=== PATIENT | female | born 1945 | race African-American/Black ===

== ENCOUNTER 2018-03-19 07:06 | Emergency (ER) | payer MEDICARE, OTHER ==
--- OUTSIDE RECORDS SUMMARY | 2018-03-19 07:08 | XMS REPORT | Clinical Summary ---
:1945 Author Organization [facility] Address [address] [place] [address] Care Team Providers Name Role Phone Alcides Cintron MD Primary Care Provider Allergies No Known Allergies Current Medications No known medications Active Problems Not on file Encounters Date Type Specialty Care Team Description 08/07/2017 Office Visit Orthopedic Surgery Baron Malhotra, Chronic pain of both knees (Primary Dx); Lymphedema 08/07/2017 Orders Only Orthopedic Surgery Mary Diaz MA after 03/18/2017 Social History Tobacco Use Types Packs/Day Years Used Date Never Smoker Smokeless Tobacco: Never Used Sex Assigned at Date Recorded Not on file Last Filed Vital Signs Vital Sign Reading Time Taken Blood Pressure - - Pulse - - Temperature - - Respiratory Rate - - Oxygen Saturation - - Inhaled Oxygen Concentration - - Weight 120 kg (265 lb) 08/07/2017 4:27 PM CDT Height 172.7 cm (5' 8") 08/07/2017 4:27 PM CDT Body Mass Index 40.29 08/07/2017 4:27 PM CDT Plan of Treatment Health Maintenance Due Date Last Done Comments BREAST CANCER SCREENING 1996 COLON CANCER SCREENING 1996 SHINGRIX VACCINE (#1) 1996 ZOSTER VACCINE 2006 PNEUMOCOCCAL POLYSACCHARIDE VACCINE AGE 65 AND OVER 2011 PNEUMOCOCCAL-13 2011 INFLUENZA VACCINE 12/12/2017 Procedures Procedure Name Priority Date/Time Associated Diagnosis Comments XR KNEE 4+ VW Routine 08/07/2017 4:33 PM Chronic pain of both Results for this BILATERAL CDT knees procedure are in the results section. after 03/18/2017 Results XR Knee 4+ Vw Bilateral (08/07/2017 4:33 PM) Narrative Performed At 2 views (AP and lateralof the bilateral knee(s) show that the prosthesis [facility] is in good position with no signs of any problems.No signs of loosening, infection, or dislocation. Performing Organization Address City/State/Zipcode Phone Number EUGENIO DAVIS [address] [place] [address] after 03/18/2017 Insurance Payer Benefit Plan / Group Subscriber ID Type Phone Address MEDICARE MEDICARE PART A AND B xxxxxxxxxx Medicare [place], [place] AARP AARP SUPPLEMENT xxxxxxxxxxx Commercial
--- NOTE | 2018-03-19 08:37 | ER ---
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 Transition of care: patient was not received from another setting of care. Onset of symptoms was March 19, 2018. Risk Assessment: Do you want to hurt yourself or someone else? Patient reports no desire to harm self or others. Initial Sepsis Screen: Does the patient meet any 2 criteria? No. Patient's initial sepsis screen is negative. Does the patient have a suspected source of infection? No. Patient's initial sepsis screen is negative. Care prior to arrival: None. 07:12 Method Of Arrival: Ambulatory 07:12 Acuity: [place] 4 hj Triage Assessment: 07:15 General: Appears in no apparent distress. uncomfortable, Behavior is calm, cooperative, hj appropriate for age. Historical: - Allergies: 07:14 No Known Allergies; hj - Home Meds: 07:14 hydrochlorothiazide 12.5 mg Oral cap 1 cap once daily [Active]; atorvastatin 40 mg Oral hj tab 1 tab once daily [Active]; amlodipine 5 mg oral tab 1 tab once daily [Active]; clonidine HCl 0.1 mg Oral tab 1 tab once daily [Active]; levothyroxine 137 mcg tab 1 tab once daily [Active]; Vitamin D Oral 28376 unit twice a month [Active]; lisinopril 40 mg Oral tab 1 tab once daily [Active]; - PMHx: 07:14 Hyperlipidemia; Hypertension; Hypothyroidism; hj - PSHx: 07:14 Knee surgery; Cholecystectomy; Hernia repair; Hysterectomy; hj - Immunization history:: Adult Immunizations up to date. - Social history:: Smoking status: Patient/guardian denies using tobacco, Patient/guardian denies using alcohol. - Ebola Screening: : Patient negative for fever greater than or equal to 101.5 degrees Fahrenheit, and additional compatible Ebola Virus Disease symptoms Patient denies exposure to infectious person Patient denies travel to an Ebola-affected area in the 21 days before illness onset. Screenin:15 Abuse screen: Denies threats or abuse. Denies injuries from another. Nutritional hj screening: No deficits noted. Tuberculosis screening: No symptoms or risk factors identified. Fall Risk None identified. Assessment: 07:15 Pain: Complains of pain in throat. Respiratory: Airway is patent Respiratory effort is hj even, unlabored, Respiratory pattern is regular, symmetrical, Breath sounds are clear. EENT: Throat. Vital Signs: 07:16 BP 139 / 73; Pulse 62; Resp 18; Temp 98.4(TE); Pulse Ox 98% on R/A; Weight 123.83 kg; hj Height 5 ft. 11 in. (180.34 cm); Pain 5/10; 08:45 BP 132 / 70; Pulse 66; Resp 17; Temp 98.4; Pulse Ox 98% on R/A; Pain 3/10; sg 07:16 Body Mass Index 38.08 (123.83 kg, 180.34 cm) ED Course: 07:11 Patient arrived in ED. mr 07:11 Varun Cintron MD is Private Physician. mr 07:13 Triage completed. hj 07:15 Arm band placed on right wrist. hj 07:16 Patient has correct armband on for positive identification. Bed in low position. Call light in reach. Side rails up X 1. 07:17 Beka Antonio, RN is Primary Nurse. sg 07:17 [facility] Ar[facility]C [facility]. kb 07:17 Zacarias Bateman MD is Attending Physician. kb 07:29 Flu and/or RSV swab sent to lab. Strep swab sent to lab. 5 07:29 Flu Sent. 5 07:29 Strep Sent. 5 09:00 No provider procedures requiring assistance completed. Patient did not have IV access sg during this emergency room visit. Administered Medications: No medications were administered Outcome: 08:36 Discharge ordered by . kb 09:00 Discharged to home ambulatory, with family. sg 09:00 Condition: good 09:00 Discharge instructions given to patient, Instructed on discharge instructions, safety practices, Demonstrated understanding of instructions, follow-up care. 09:03 Patient left the ED. iw Signatures: Donna Arrington FNP-C FNP-Beka Junior RN RN sg Nasim Hayley mr Ibis Galan RN RN iw Joaquin, Henry, RN RN hj Martinez, Maria [facility] Corrections: (The following items were deleted from the chart) 07:18 07:16 Pulse 62bpm; Resp 18bpm; Pulse Ox 98% RA; Temp 98.4F Temporal; 123.83 kg; Height hj 5 ft. 11 in.; BMI: 38.0; Pain 5/10; hj
--- NOTE | 2018-03-19 08:37 | EDPHYS ---
Physician Documentation [facility] Name: Conchita Padilla Age: 72 yrs Sex: Female : 1945 Arrival Date: 03/19/2018 Time: 07:11 Bed 13 Private MD: Varun Cintron B ED Physician Zacarias Bateman HPI: 03/19 07:24 This 72 yrs old Black Female presents to ER via Ambulatory with complaints of Sore kb Throat. 07:24 The patient presents with sore throat. The patient describes throat pain as constant. kb Onset: The symptoms/episode began/occurred yesterday. Severity of symptoms: At their worst the symptoms were moderate, in the emergency department the symptoms are unchanged. Modifying factors: The symptoms are alleviated by nothing, the symptoms are aggravated by swallowing, Patient's oral intake status: good Denies contact with similarly ill indivduals. Associated signs and symptoms: Pertinent positives: headache, Sore throat. The patient has not experienced similar symptoms in the past. The patient has not recently seen a physician. Pt c/o sore throat that started yesterday and has gotten worse throughout the night. Headache just started as well. Denies fever, chills. . Historical: - Allergies: 07:14 No Known Allergies; hj - Home Meds: 07:14 hydrochlorothiazide 12.5 mg Oral cap 1 cap once daily [Active]; atorvastatin 40 mg Oral hj tab 1 tab once daily [Active]; amlodipine 5 mg oral tab 1 tab once daily [Active]; clonidine HCl 0.1 mg Oral tab 1 tab once daily [Active]; levothyroxine 137 mcg tab 1 tab once daily [Active]; Vitamin D Oral 84278 unit twice a month [Active]; lisinopril 40 mg Oral tab 1 tab once daily [Active]; - PMHx: 07:14 Hyperlipidemia; Hypertension; Hypothyroidism; hj - PSHx: 07:14 Knee surgery; Cholecystectomy; Hernia repair; Hysterectomy; hj - Immunization history:: Adult Immunizations up to date. - Social history:: Smoking status: Patient/guardian denies using tobacco, Patient/guardian denies using alcohol. - Ebola Screening: : Patient negative for fever greater than or equal to 101.5 degrees Fahrenheit, and additional compatible Ebola Virus Disease symptoms Patient denies exposure to infectious person Patient denies travel to an Ebola-affected area in the 21 days before illness onset. ROS: 07:26 Constitutional: Negative for fever, chills, and weight loss, Neck: Negative for injury, kb pain, and swelling, Cardiovascular: Negative for chest pain, palpitations, and edema, Respiratory: Negative for shortness of breath, cough, wheezing, and pleuritic chest pain, Abdomen/GI: Negative for abdominal pain, nausea, vomiting, diarrhea, and constipation, MS/Extremity: Negative for injury and deformity, Skin: Negative for injury, rash, and discoloration. 07:26 ENT: Positive for sore throat. 07:26 Neuro: Positive for headache. Exam: 07:26 Constitutional: This is a well developed, well nourished patient who is awake, alert, kb and in no acute distress. Head/Face: Normocephalic, atraumatic. Neck: Trachea midline, no thyromegaly or masses palpated, and no cervical lymphadenopathy. Supple, full range of motion without nuchal rigidity, or vertebral point tenderness. No Meningismus. Chest/axilla: Normal chest wall appearance and motion. Nontender with no deformity. No lesions are appreciated. Cardiovascular: Regular rate and rhythm with a normal S1 and S2. No gallops, murmurs, or rubs. Normal PMI, no JVD. No pulse deficits. Respiratory: Lungs have equal breath sounds bilaterally, clear to auscultation and percussion. No rales, rhonchi or wheezes noted. No increased work of breathing, no retractions or nasal flaring. Abdomen/GI: Soft, non-tender, with normal bowel sounds. No distension or tympany. No guarding or rebound. No evidence of tenderness throughout. Skin: Warm, dry with normal turgor. Normal color with no rashes, no lesions, and no evidence of cellulitis. MS/ Extremity: Pulses equal, no cyanosis. Neurovascular intact. Full, normal range of motion. Neuro: Awake and alert, GCS 15, oriented to person, place, time, and situation. Cranial nerves II-XII grossly intact. Motor strength 5/5 in all extremities. Sensory grossly intact. Cerebellar exam normal. Normal gait. 07:26 ENT: Posterior pharynx: Airway: normal, no evidence of obstruction, Tonsils: with erythema, Uvula: normal, midline, swelling, that is mild, erythema, that is moderate, exudate, is not appreciated. Vital Signs: 07:16 BP 139 / 73; Pulse 62; Resp 18; Temp 98.4(TE); Pulse Ox 98% on R/A; Weight 123.83 kg; hj Height 5 ft. 11 in. (180.34 cm); Pain 5/10; 08:45 BP 132 / 70; Pulse 66; Resp 17; Temp 98.4; Pulse Ox 98% on R/A; Pain 3/10; sg 07:16 Body Mass Index 38.08 (123.83 kg, 180.34 cm) hj MDM: 07:18 Patient medically screened. kb 07:26 Data reviewed: vital signs, nurses notes. Data interpreted: Pulse oximetry: on room air kb is 98 %. Interpretation: normal. Counseling: I had a detailed discussion with the patient and/or guardian regarding: the historical points, exam findings, and any diagnostic results supporting the discharge/admit diagnosis, lab results, the need for outpatient follow up, a family practitioner, to return to the emergency department if symptoms worsen or persist or if there are any questions or concerns that arise at home. 03/19 07:22 Order name: Strep; Complete Time: 08:24 kb 03/19 07:22 Order name: Flu; Complete Time: 08:24 kb 03/19 08:21 Order name: Throat Culture EDMS Administered Medications: No medications were administered Disposition: 10:04 Co-signature as Attending Physician, Zacarias Bateman MD. rn Disposition: 03/19/18 08:36 Discharged to Home. Impression: Acute pharyngitis. - Condition is Stable. - Discharge Instructions: Pharyngitis, [id number]. - Medication Reconciliation Form, Thank You Letter, Antibiotic Education, Prescription Opioid Use, Work release form form. - Follow up: Emergency Department; When: As needed; Reason: Worsening of condition. Follow up: Private Physician; When: 2 - 3 days; Reason: Recheck today's complaints, Continuance of care, Re-evaluation by your physician. Signatures: Dispatcher [employer] EDMS Donna Arrington FNP-C FNP-Ibis Rondon RN RN iw Nieto, Roman, MD MD rn Joaquin, Henry, RN RN hj Corrections: (The following items were deleted from the chart) 09:03 08:36 03/19/2018 08:36 Discharged to Home. Impression: Acute pharyngitis. Condition is iw Stable. Discharge Instructions: Pharyngitis, [id number]. Forms are Medication Reconciliation Form, Thank You Letter, Antibiotic Education, Prescription Opioid Use. Follow up: Emergency Department; When: As needed; Reason: Worsening of condition. Follow up: Private Physician; When: 2 - 3 days; Reason: Recheck today's complaints, Continuance of care, Re-evaluation by your physician. kb
== END 2018-03-19 09:03 | disposition home or self-care (01) ==
LOC: ER 07:06
DX: J02.9 Acute pharyngitis, unspecified (principal); E78.5 Hyperlipidemia, unspecified; I10 Essential (primary) hypertension; E03.9 Hypothyroidism, unspecified
CPT/HCPCS: 87070; 87081; 87804; 99283

== ENCOUNTER 2019-06-16 07:22 | Emergency (ER) | payer OTHER, MEDICARE ==
[2019-06-16] MEDS ORDERED: NA CHLORIDE 0.9% 500 ML ONE (07:50)
[2019-06-16 08:18] LABS: Absolute Lymphocytes (CBC) 2.4 K/uL (0.7-4.9); Basophils % 0.5 % (0-1.3); Hematocrit 41.6 % (36.0-45.0); Lymphocytes % 42.3 % (15.3-44.8); MPV 8.2 fL (7.6-11.3); RBC Red Blood Cell Count 4.31 M/uL (3.86-4.86)
--- NOTE | 2019-06-16 08:23 | RAD REPORT ---
EXAM DESCRIPTION: CT - Stone Protocol - 06/16/2019 8:08 am CLINICAL HISTORY: FLANK PAIN, right-sided COMPARISON: CTANGIO CHEST FOR PE dated 12/16/2012 TECHNIQUE: Axial 5 mm thick images were obtained without oral or IV contrast. The knzjp-[id number] span s the entirety of the system including uppermost abdomen and lung bases. All CT scans are performed using dose optimization technique as appropriate and may include automated exposure control or mA/KV adjustment according to patient size. FINDINGS: No hydronephrosis is present and no obstructing ureteral calculi. No suspicious renal mass es. A 25 millimeter area of homogeneous fat attenuation is present along the lateral margin of the le ft kidney. This is possibly parenchymal loss from prior injury. Angiomyolipoma is also a primary cons ideration. Finding is not regarded as significant. Isodense masses and pyelonephritis are not exclude d on a stone protocol CT scan. Urinary bladder is fully contracted limiting assessment. No bladder ca lculi suspected. Uterus is absent. Ovaries are absent or atrophic. No adnexal mass. No significant ad renal finding. The liver and spleen show no suspicious findings. Atrophy and fatty infiltration of the pancreatic pa renchyma noted. No primary pancreatic mass identifiable. Several accessory splenic nodules are presen t along the medial inferior boundary. In the posterosuperior right lobe segment VIII there is a 13 mi llimeter low-density mass. This is most likely a cyst. No measurable change from 2012. Cholecystectom y clips are present. No biliary tree dilatation. No suspicious bowel findings. Left-sided diverticulosis is present without diverticulitis. No finding s for appendicitis. No hernia, mass or bulky lymphadenopathy noted. No free air, free fluid or inflammatory stranding. No significant bony abnormality. L4-5 degenerative disc disease present. Prominent facet joint degene rative change present at L3-4 and L4-5. IMPRESSION: No hydronephrosis, obstructing calculus or other acute finding. Isodense masses and pyelonephritis are not excluded on stone protocol technique. As detailed above, no acute or suspicious findings identified.
[2019-06-16 08:26] LABS: Urine Blood TRACE (NEG); Urine Glucose NEGATIVE (NEG); Urine Protein NEGATIVE (NEG); Urine Specific Gravity 1.015 (1.005-1.030)
[2019-06-16 08:30] LABS: Urine Bacteria 20-50 /HPF (<20); Urine Culture Reflex Order NOT NEEDED; Urine RBC <5 /HPF (NONE SEEN)
[2019-06-16] MEDS ORDERED: CEFTRIAXONE/SWI 1gm 1 GM/10 ML SYR ONE (08:31)
[2019-06-16 08:33] LABS: Albumin 3.9 g/dL (3.4-5.0); Bilirubin Direct 0.1 mg/dL (0-0.2); Bilirubin Total 0.5 mg/dL (0.2-1.0); Potassium 3.9 mmol/L (3.5-5.1); Protein, Total 7.8 g/dL (6.4-8.2)
--- NOTE | 2019-06-16 10:09 | EDPHYS ---
Physician Documentation [facility] Name: Conchita Padilla Age: 74 yrs Sex: Female : 1945 Arrival Date: 06/16/2019 Time: 07:25 Bed 19 Private MD: ED Physician Silver Marx HPI: 06/16 07:48 This 74 yrs old Black Female presents to ER via Ambulatory with complaints of Flank cp Pain. 07:49 The patient complains of pain in the right subscapular area and right mid back. The cp pain does not radiate. Onset: The symptoms/episode began/occurred 2 week(s) ago. 07:49 Associated signs and symptoms: Pertinent negatives: diarrhea, dysuria, fever, cp hematuria, pain radiating to the lower extremities, vomiting. Historical: - Allergies: 07:35 No Known Allergies; ss - PMHx: 07:35 Hyperlipidemia; Hypertension; Hypothyroidism; ss - PSHx: 07:35 Knee surgery; Cholecystectomy; Hernia repair; Hysterectomy; ss - Immunization history:: Adult Immunizations up to date. - Coronavirus screen:: The patient has NOT traveled to [place], [place], or [place] in the past 14 days. Proceed with normal triage process as indicated. - Social history:: Smoking status: Patient denies any tobacco usage or history of. - Ebola Screening: : Patient denies exposure to infectious person Patient denies travel to an Ebola-affected area in the 21 days before illness onset. ROS: 08:00 Constitutional: Negative for body aches, chills, fever, poor PO intake. cp 08:00 Eyes: Negative for injury, pain, redness, and discharge. cp 08:00 ENT: Negative for drainage from ear(s), ear pain, sore throat, difficulty swallowing, difficulty handling secretions. 08:00 Cardiovascular: Negative for chest pain, edema, palpitations. 08:00 Respiratory: Negative for cough, shortness of breath, wheezing. 08:00 Abdomen/GI: Negative for abdominal pain, vomiting, diarrhea, constipation, black/tarry stool, rectal bleeding. 08:00 Back: Positive for pain at rest, pain with movement, of the right subscapular area and right mid back. 08:00 : Negative for urinary symptoms. 08:00 Skin: Negative for rash. 08:00 Neuro: Negative for headache, weakness. 08:00 All other systems are negative. Exam: 08:05 Constitutional: The patient appears in no acute distress, alert, awake, non-toxic, well cp developed, well nourished. 08:05 Head/Face: Normocephalic, atraumatic. cp 08:05 Eyes: Periorbital structures: appear normal, Conjunctiva: normal, no exudate, no injection, Sclera: no appreciated abnormality, Lids and lashes: appear normal, bilaterally. 08:05 ENT: External ear(s): are unremarkable, Nose: is normal, Mouth: is normal, Posterior pharynx: Airway: no evidence of obstruction, patent. 08:05 Neck: ROM/movement: is normal, is supple, without pain, no range of motions limitations. 08:05 Chest/axilla: Inspection: normal. 08:05 Cardiovascular: Rate: normal, Rhythm: regular, Edema: is not appreciated, JVD: is not appreciated. 08:05 Respiratory: the patient does not display signs of respiratory distress, Respirations: normal, no use of accessory muscles, no splinting, no tachypnea, labored breathing, is not present, Breath sounds: are clear throughout, no decreased breath sounds, no stridor, no wheezing. 08:05 Abdomen/GI: Inspection: abdomen appears normal, Bowel sounds: active, all quadrants, Palpation: abdomen is soft and non-tender, in all quadrants. 08:05 Back: pain, that is mild, of the right subscapular area and right mid back, ROM is normal. 08:05 Skin: no rash present. Vital Signs: 07:32 BP 159 / 78; Pulse 67; Resp 16; Temp 97.8(TE); Pulse Ox 99% on R/A; Weight 114.31 kg; ss Height 5 ft. 8 in. (172.72 cm); Pain 5/10; 08:33 BP 135 / 71; Pulse 55; Resp 17; Pulse Ox 100% ; bp 09:41 BP 140 / 64; Pulse 57; Resp 16; Pulse Ox 98% ; bp 07:32 Body Mass Index 38.32 (114.31 kg, 172.72 cm) ss MDM: 07:39 Patient medically screened. cp 08:00 Differential diagnosis: nephrolithiasis, pyelonephritis, UTI, muscle strain. cp 10:08 Data reviewed: vital signs, nurses notes, lab test result(s), radiologic studies, CT cp scan. 10:08 Counseling: I had a detailed discussion with the patient and/or guardian regarding: the cp historical points, exam findings, and any diagnostic results supporting the discharge/admit diagnosis, lab results, radiology results, to return to the emergency department if symptoms worsen or persist or if there are any questions or concerns that arise at home. Response to treatment: the patient's symptoms have mildly improved after treatment, and as a result, I will discharge patient. 06/16 07:42 Order name: Urine Dipstick--Ancillary (enter results) bd 06/16 07:42 Order name: Urine Microscopic Only bp 06/16 07:43 Order name: Basic Metabolic Panel cp 06/16 07:43 Order name: CBC with Diff cp 06/16 07:43 Order name: Creatinine for Radiology cp 06/16 07:43 Order name: Hepatic Function cp 06/16 07:43 Order name: Lipase cp 06/16 07:43 Order name: Urine Microscopic Only cp 06/16 07:43 Order name: Urine Culture cp 06/16 08:19 Order name: CBC with Automated Diff; Complete Time: 08:20 EDMS 06/16 08:26 Order name: Urine Dipstick-Ancillary; Complete Time: 09:44 EDMS 06/16 09:44 Interpretation: Normal except: UBLD TRACE; U NIT POSITIVE; UESTR 1+. cp 06/16 08:29 Order name: Creatinine (Radiology Only); Complete Time: 09:44 EDMS 06/16 08:31 Order name: Urine Microscopic Only; Complete Time: 09:44 EDMS 06/16 09:44 Interpretation: Normal except: UWBC 5-10; UBACT 20-50; SQEPI 5-10. cp 06/16 08:33 Order name: Basic Metabolic Panel; Complete Time: 09:44 EDMS 06/16 07:42 Order name: Urine Dipstick-Ancillary (obtain specimen); Complete Time: 07:42 bp 06/16 07:43 Order name: IV Saline Lock; Complete Time: 08:06 cp 06/16 07:43 Order name: Labs collected and sent; Complete Time: 08:06 cp 06/16 07:43 Order name: CT Stone Protocol cp 06/16 08:23 Order name: CT; Complete Time: 09:44 EDMS 06/16 08:33 Order name: Liver (Hepatic) Function; Complete Time: 09:44 [facility] 06/16 08:33 Order name: Lipase; Complete Time: 44 [facility] Administered Medications: 08:00 Drug: NS 0.9% 500 ml Route: IV; Rate: 500 ml/hr; Site: left hand; bp 10:23 Follow up: IV Status: Completed infusion; IV Intake: 500ml bp 08:30 Drug: Rocephin 1 grams Route: IV; Rate: calculated rate; Site: left hand; bp 10:22 Follow up: IV Status: Completed infusion; IV Intake: 50ml bp Disposition: 10:32 Co-signature as Attending Physician, Silver Marx MD I agree with the assessment and kdr plan of care. Disposition: 06/16/19 10:08 Discharged to Home. Impression: Urinary tract infection, site not specified, Right mid back pain. - Condition is Stable. - Discharge Instructions: Pyelonephritis, Adult, Urinary Tract Infection, Adult. - Prescriptions for Augmentin 875- 125 mg Oral Tablet - take 1 tablet by ORAL route every 12 hours for 10 days; 20 tablet. Ibuprofen 800 mg Oral Tablet - take 1 tablet by ORAL route every 8 hours As needed take with food; 30 tablet. Tramadol 50 mg Oral Tablet - take 1 tablet by ORAL route every 8 hours as needed; 12 tablet. - Medication Reconciliation Form, Thank You Letter, Antibiotic Education, Prescription Opioid Use, Work release form form. - Follow up: Private Physician; When: 2 - 3 days; Reason: Recheck today's complaints. - Problem is new. - Symptoms have improved. Signatures: Dispatcher [employer] [facility] Silver Marx MD MD [facility] Hannah Holt RN RN ss Jone Betancourt PA PA cp Hardik Frederick, RN RN bp Corrections: (The following items were deleted from the chart) 10:23 10:08 06/16/2019 10:08 Discharged to Home. Impression: Urinary tract infection, site bp not specified; Right mid back pain. Condition is Stable. Forms are Medication Reconciliation Form, Thank You Letter, Antibiotic Education, Prescription Opioid Use. Follow up: Private Physician; When: 2 - 3 days; Reason: Recheck today's complaints. Problem is new. Symptoms have improved. cp
--- NOTE | 2019-06-16 10:09 | ER ---
Nurse's Notes [facility] Name: Conchita Padilla Age: 74 yrs Sex: Female : 1945 Arrival Date: 06/16/2019 Time: 07:25 Bed 19 Private MD: Diagnosis: Urinary tract infection, site not specified;Right mid back pain Presentation: 06/16 07:33 Presenting complaint: Patient states: R flank pain that began 2 weeks ago. No injury. ss Transition of care: patient was not received from another setting of care. Onset of symptoms was May 2019. Risk Assessment: Do you want to hurt yourself or someone else? Patient reports no desire to harm self or others. Initial Sepsis Screen: Does the patient meet any 2 criteria? No. Patient's initial sepsis screen is negative. Does the patient have a suspected source of infection? No. Patient's initial sepsis screen is negative. Care prior to arrival: Medication(s) given: Tramadol x 1. 07:33 Method Of Arrival: Ambulatory ss 07:33 Acuity: [place] 3 ss Triage Assessment: 07:32 General: Appears in no apparent distress. comfortable, obese, Behavior is calm, bp cooperative, appropriate for age. Pain: Complains of pain in right flank. EENT: No deficits noted. Neuro: No deficits noted. Cardiovascular: No deficits noted. Respiratory: No deficits noted. GI: No signs and/or symptoms were reported involving the gastrointestinal system. : Reports urinary frequency. Derm: No deficits noted. Musculoskeletal: No deficits noted. Historical: - Allergies: 07:35 No Known Allergies; ss - PMHx: 07:35 Hyperlipidemia; Hypertension; Hypothyroidism; ss - PSHx: 07:35 Knee surgery; Cholecystectomy; Hernia repair; Hysterectomy; ss - Immunization history:: Adult Immunizations up to date. - Coronavirus screen:: The patient has NOT traveled to [place], [place], or [place] in the past 14 days. Proceed with normal triage process as indicated. - Social history:: Smoking status: Patient denies any tobacco usage or history of. - Ebola Screening: : Patient denies exposure to infectious person Patient denies travel to an Ebola-affected area in the 21 days before illness onset. Screenin:33 Abuse screen: Denies threats or abuse. Denies injuries from another. Nutritional bp screening: No deficits noted. Tuberculosis screening: No symptoms or risk factors identified. Fall Risk None identified. Assessment: 07:34 General: SEE TRIAGE NOTE. bp 08:05 Reassessment: PT TO CT WITH BOILER WELDER. bp 08:17 Reassessment: PT RETURNED FROM CT. ALL CURRENT ORDERS COMPLETED, RESULTS PENDING FOR bp DISPO. 09:42 Reassessment: PT RESTING QUIETLY, VS STABLE ON MONITOR. RESULTS PENDING FOR DISPO. bp 10:21 Reassessment: PT D/C HOME AMBULATORY, DX WITH UTI AND BACK PAIN. bp Vital Signs: 07:32 BP 159 / 78; Pulse 67; Resp 16; Temp 97.8(TE); Pulse Ox 99% on R/A; Weight 114.31 kg; ss Height 5 ft. 8 in. (172.72 cm); Pain 5/10; 08:33 BP 135 / 71; Pulse 55; Resp 17; Pulse Ox 100% ; bp 09:41 BP 140 / 64; Pulse 57; Resp 16; Pulse Ox 98% ; bp 07:32 Body Mass Index 38.32 (114.31 kg, 172.72 cm) ED Course: 07:25 Patient arrived in ED. es 07:27 Hardik Frederick, RN is Primary Nurse. bp 07:32 Arm band placed on right wrist. ss 07:33 Patient has correct armband on for positive identification. Bed in low position. Call bp light in reach. Side rails up X2. 07:34 Triage completed. ss 07:35 Jone Betancourt PA is PHCP. cp 07:35 iSlver Marx MD is Attending Physician. cp 08:00 Inserted saline lock: 24 gauge in left hand, using aseptic technique. Blood collected. bp 08:43 Basic Metabolic Panel Sent. bp 08:44 CBC with Diff Sent. bp 08:44 Creatinine for Radiology Sent. bp 08:44 Hepatic Function Sent. bp 08:44 Lipase Sent. bp 08:44 Urine Dipstick--Ancillary (enter results) Sent. bp 08:44 Urine Microscopic Only Sent. bp 08:44 Urine Microscopic Only Sent. bp 08:44 Urine Culture Sent. bp 10:22 No provider procedures requiring assistance completed. IV discontinued, intact, bp bleeding controlled, No redness/swelling at site. Pressure dressing applied. Administered Medications: 08:00 Drug: NS 0.9% 500 ml Route: IV; Rate: 500 ml/hr; Site: left hand; bp 10:23 Follow up: IV Status: Completed infusion; IV Intake: 500ml bp 08:30 Drug: Rocephin 1 grams Route: IV; Rate: calculated rate; Site: left hand; bp 10:22 Follow up: IV Status: Completed infusion; IV Intake: 50ml bp Intake: 10:22 IV: 50ml; Total: 50ml. bp 10:23 IV: 500ml; Total: 550ml. bp Outcome: 10:08 Discharge ordered by MD. cp 10:22 Discharged to home ambulatory. bp 10:22 Condition: stable 10:22 Discharge instructions given to patient, Instructed on discharge instructions, follow up and referral plans. medication usage, Demonstrated understanding of instructions, follow-up care, medications, Prescriptions given X 3. 10:23 Patient left the ED. bp Addendum: 06/19/2019 09:52 Addendum: Culture Results: Positive urine culture. No further action required. Bacteria i w sensitive to prescribed antibiotic. Signatures: She Ryan Irene, RN RN Hannah Holt RN RN Jone Rivera PA PA Hardik Mccormack, RN RN bp
[2019-06-16 10:33] VITALS: TEMP 97.8
[2019-06-16 10:36] VITALS: BP 140/64; O2SAT 98
== END 2019-06-16 10:23 | disposition home or self-care (01) ==
LOC: ER 07:22
DX: N39.0 Urinary tract infection, site not specified (principal); M54.9 Dorsalgia, unspecified; I10 Essential (primary) hypertension
CPT/HCPCS: 96365; 96361; 87088; 85025; 87086; 80048; 36415; 80076; 87077; 87186; 83690; 76377; 74176; 99284; 96366; J0696; J7040; 81003; 81015

== ENCOUNTER 2020-09-23 16:05 | Emergency (ER) | payer OTHER, MEDICARE ==
--- OUTSIDE RECORDS SUMMARY | 2020-09-23 16:08 | XMS REPORT | Continuity of Care Document ---
:1945 Author Organization [facility] Address [address] [place] [address] Care Team Providers Name Role Phone Malvin Cintron MD Primary Care Physician Simi Castrejon Attending Clinician [phone] Garry PICKETT, AAlbino Attending Clinician Payers Payer Name Policy Type Policy Effective Date Expiration Date Sour ce Number MEDICAREMEDICARE PART [id number] 2011 Ankush Lucero AND 00:00:00 [facility] [id number] 2011[place] [place] [id number] 2017 [place] [id number] 00:00:00 Met bush 2017-PresentComme rcial Problems This patient has no known problems. Allergies, Adverse Reactions, Alerts This patient has no known allergies or adverse reactions. Family History Family Member Diagnosis Comments Start Date Stop Date Source Natural brother Cancer [facility] Social History Social Habit Start Date Stop Date Quantity Comments Source Tobacco use and 2020-04-26 2020-04-26 Never used [facility] exposure 00:00:00 00:00:00 Alcohol intake 2020-04-26 2020-04-26 [facility] 00:00:00 00:00:00 non-drinker (finding) Sex Ass[birth year] [facility] 00:00:00 00:00:00 Smoking Status Start Date Stop Date Source Never smoker [facility] Ev t Medications Ordered Filled Start Stop Current Ordering Indication Dosage Frequency Signature Comments Components Source Medication Medication Date Date Medication? Clinician (SIG) Name Name gabapentin 2019-05- No Chronic 100mg [id number] Take 1 Romero (Neurontin) 06-27 midline low [id number] capsule [facility] 100 mg 00:00: 23:59 back pain 3D ([address] capsule 00 :00 without total) by sciatica mouth 3 (three) times a day. gabapentin 2019-05- No Chronic 100mg [id number] Take 1 Romero (Neurontin) 06-27 midline low [id number] capsule Methodi 100 mg 00:00: 00:00 back pain 3D ([address] capsule 00 :00 without total) by sciatica mouth 3 (three) times a day. clonIDINE 2019-05 Yes .1mg QD Take 0.1 [place] (CATAPRES) 0-23 mg by [facility] 0.1 MG 00:00: mouth st tablet 00 nightly. hydroCHLORO 2019-05 Yes TK 1 T PO [place] thiazide 0-23 QAM PRN [facility] (HYDRODIURI 00:00: st L) 12.5 MG 00 tablet cholecalcif 2019-05 Yes TK 1 C PO [place] nan, 0-22 Q 15 DAYS [facility] vitamin D3, 00:00: st 1,250 mcg 00 (50,000 unit) capsule amLODIPine 0 Yes 5mg QD Take 5 mg [place] (NORVASC) 5 02-03 by mouth Meth [place] mg tablet 00:00: daily. st 00 atorvastati 2020-0 Yes 40mg QD Take 40 mg Jasso n (LIPITOR) 02-03 by mouth [place] 40 mg 00:00: daily. st tablet 00 traMADoL 2020-0 Yes 50mg Take 50 mg [place] (ULTRAM) 50 02-02 by mouth. Met hodi mg tablet 00:00: st 00 omeprazole 2020-0 Yes TK ONE C [place] (PriLOSEC) 9-15 PO D 30 Metho di 40 MG 00:00: MINUTES st capsule 00 BEFORE MORNING MEAL Vital Signs Vital Name Observation Time Observation Value Comments Source Systolic blood 2020-04-26 09:37:00 143 mm[Hg] Angela murray Ten[facility] pressure Diastolic blood 2020-04-26 09:37:00 71 mm[Hg] Danial ozuna [facility]ism pressure Heart rate 2020-04-26 09:37:00 61 /min Romero Abreu Respiratory rate 2020-04-26 09:37:00 20 /min Ana ton [facility]ism Body weight 2020-04-26 09:37:00 115.667 kg Romero Abreu BMI 2020-04-26 09:37:00 38.77 kg/m2 Romero Abreu Procedures This patient has no known procedures. Plan of Care Planned Activity Planned Date Details Comments Source Future Scheduled 2020-12-12 INFLUENZA VACCINE Anato n Tenriism Test 00:00:00 [code = INFLUENZA VACCINE] Future Scheduled 2011 65+ PNEUMOCOCCAL Jasso [facility] Test 00:00:00 VACCINE (1 of 1 - PPSV23) [code = 65+ PNEUMOCOCCAL VACCINE (1 of 1 - PPSV23)] Future Scheduled 1996 BREAST CANCER [facility] Test 00:00:00 SCREENING [code = BREAST CANCER SCREENING] Future Scheduled 1996 COLONOSCOPY SCREENING [place] [facility] Test 00:00:00 [code = COLONOSCOPY SCREENING] Future Scheduled 1996 SHINGLES VACCINES (#1) [place] [facility] Test 00:00:00 [code = SHINGLES VACCINES (#1)] Future Scheduled 1964 Hepatitis C screening [place] [facility] Test 00:00:00 (procedure) [code = 477449646] Future Scheduled 1958 COVID-19 VACCINE (1) [place] st[place] [facility] Test 00:00:00 [code = COVID-19 VACCINE (1)] Encounters Start End Encounter Admission Attending Care Care Encounter Source Date/Time Date/Time Type Type Clinicians Facility Department ID 2020-09-20 2020-09-20 Outpatient MAX Castrejon [id number] 00:00:00 00:00:00 Xiomara [id number] Simi [id number] 2020-04-26 2020-04-26 Outpatient [facility] [id number] [place] 00:00:00 00:00:00 , ARACELI [address] 2020-03-26 2020-03-26 Outpatient [facility] [id number] [place] 00:00:00 00:00:00 , ARACELI [address] Results This patient has no known results.
--- NOTE | 2020-09-23 19:26 | EDPHYS ---
Physician Documentation [facility] Name: Conchita Padilla Age: 75 yrs Sex: Female : 1945 Arrival Date: 09/23/2020 Time: 16:08 Bed 13 Private MD: Varun Cintron B ED Physician Jone Waller HPI: 09/23 17:40 This 75 yrs old Black Female presents to ER via EMS with complaints of Leg Pain. jr8 17:40 Onset: The symptoms/episode began/occurred acutely, today. Modifying factors: The jr8 symptoms are alleviated by nothing. the symptoms are aggravated by weight bearing. Associated signs and symptoms: The patient has no apparent associated signs or symptoms. Severity of symptoms: At their worst the symptoms were mild, in the emergency department the symptoms are unchanged. The patient has not experienced similar symptoms in the past. The patient has not recently seen a physician. Patient stated that she woke up with right knee pain and left ankle pain. Has not wanted to bear weight secondary to pain. Denies trauma to either extremity . Historical: - Allergies: 16:28 No Known Allergies; jl7 - Home Meds: 16:28 amlodipine 5 mg tab 1 tab once daily [Active]; hydrochlorothiazide 12.5 mg Oral cap 1 jl7 cap once daily [Active]; clonidine HCl 0.1 mg Oral tab 1 tab once daily [Active]; levothyroxine 137 mcg tab 1 tab once daily [Active]; olmesartan oral oral [Active]; atorvastatin 40 mg Oral tab 1 tab once daily [Active]; - PMHx: 16:28 Hyperlipidemia; Hypertension; Hypothyroidism; jl7 - PSHx: 16:28 Cholecystectomy; Hernia repair; Hysterectomy; Knee surgery; jl7 - Immunization history:: Adult Immunizations up to date, Client reports receiving the 2nd dose of the Covid vaccine, Date received: August 04, 2020. - Social history:: Smoking status: Patient denies any tobacco usage or history of. ROS: 19:00 Eyes: Negative for injury, pain, redness, and discharge, ENT: Negative for injury, jr8 pain, and discharge, Neck: Negative for injury, pain, and swelling, Cardiovascular: Negative for chest pain, palpitations, and edema, Respiratory: Negative for shortness of breath, cough, wheezing, and pleuritic chest pain, Abdomen/GI: Negative for abdominal pain, nausea, vomiting, diarrhea, and constipation, Back: Negative for injury and pain, Skin: Negative for injury, rash, and discoloration, Neuro: Negative for headache, weakness, numbness, tingling, and seizure. 19:00 MS/extremity: Positive for pain, tenderness, of the right knee and left ankle. Exam: 19:00 Constitutional: This is a well developed, well nourished patient who is awake, alert, jr8 and in no acute distress. Cardiovascular: Regular rate and rhythm with a normal S1 and S2. No gallops, murmurs, or rubs. Normal PMI, no JVD. No pulse deficits. Respiratory: Lungs have equal breath sounds bilaterally, clear to auscultation and percussion. No rales, rhonchi or wheezes noted. No increased work of breathing, no retractions or nasal flaring. Back: No spinal tenderness. No costovertebral tenderness. Full range of motion without pain. Skin: Warm, dry with normal turgor. Normal color with no rashes, no lesions, and no evidence of cellulitis. Neuro: Awake and alert, GCS 15, oriented to person, place, time, and situation. Cranial nerves II-XII grossly intact. Motor strength 5/5 in all extremities. Sensory grossly intact. 19:00 Musculoskeletal/extremity: Extremities: grossly normal except: noted in the right knee: pain, tenderness, to anterior knee. No significant swelling noted , noted in the left ankle : pain, tenderness, to anterior ankle. No swelling or erythema noted , ROM: intact in all extremities, Circulation is intact in all extremities. Sensation intact. Vital Signs: 16:23 BP 130 / 47; Pulse 63; Resp 15 S; Temp 98.1(TE); Pulse Ox 97% on R/A; Weight 122.02 kg; jl7 Height 5 ft. 8 in. (172.72 cm); Pain 8/10; 17:34 BP 115 / 48; Pulse 75; Resp 18; Pulse Ox 97% on R/A; vg1 18:39 BP 119 / 64; Pulse 76; Resp 16; Pulse Ox 100% on R/A; vg1 20:00 BP 129 / 63; Pulse 70; Resp 16; Pulse Ox 100% on R/A; vg1 16:23 Body Mass Index 40.90 (122.02 kg, 172.72 cm) jl7 MDM: 17:15 Patient medically screened. jr8 19:13 Data reviewed: vital signs, nurses notes, radiologic studies, plain films. Data jr8 interpreted: Pulse oximetry: on room air is 100 %. Interpretation: normal. Counseling: I had a detailed discussion with the patient and/or guardian regarding: the historical points, exam findings, and any diagnostic results supporting the discharge/admit diagnosis, radiology results, the need for outpatient follow up, a family practitioner, a orthopedic surgeon, to return to the emergency department if symptoms worsen or persist or if there are any questions or concerns that arise at home. 19:23 ED course: No focal neurologic deficits noted on exam. Discussed with patient that we jr8 will try some medications to help with inflammation. If she feels worse to come back for further evaluation. Patient good with plan. 09/23 17:28 Order name: XRAY Knee RIGHT 3 view; Complete Time: 09:48 jr8 09/23 17:28 Order name: XRAY Ankle LEFT 3 view; Complete Time: 09:48 jr8 Administered Medications: 20:07 Drug: [place] (HYDROcodone-acetaminophen) (7.5 mg-325 mg) 1 tabs Route: PO; vg1 20:11 Follow up: Response: Medication administered at discharge. vg1 Disposition: 09/23/20 19:25 Discharged to Home. Impression: Pain in right knee, Pain in left ankle and joints of left foot. - Condition is Stable. - Discharge Instructions: Joint Pain, Arthritis, Knee Pain. - Prescriptions for meloxicam 7.5 mg Oral tablet - take 1 tablet by ORAL route once daily As needed; 14 tablet. Medrol (Kevin) 4 mg Oral Tablets, Dose Pack - take 1 tablet by ORAL route as directed - follow package instructions; 1 packet. - Medication Reconciliation Form, Thank You Letter, Antibiotic Education, Prescription Opioid Use form. - Follow up: Varun Cintron MD; When: 1 week; Reason: Recheck today's complaints, Continuance of care, Re-evaluation by your physician. - Problem is new. - Symptoms have improved. Addendum: 09/25/2020 07:46 Co-signature as Attending Physician, Jone Waller MD I agree with the assessment and c cuellar plan of care. Signatures: Dispatcher [employer] Jone Baker MD MD cha Roszak, Josh, PA PA jr8 Joseph Villareal, RN RN jl7 Yoko Calvillo, RN RN vg1 Corrections: (The following items were deleted from the chart) 09/23 19:05 17:40 . jr8 jr8 19:23 19:00 Constitutional: This is a well developed, well nourished patient who is awake, jr8 alert, and in no acute distress. Cardiovascular: Regular rate and rhythm with a normal S1 and S2. No gallops, murmurs, or rubs. Normal PMI, no JVD. No pulse deficits. Respiratory: Lungs have equal breath sounds bilaterally, clear to auscultation and percussion. No rales, rhonchi or wheezes noted. No increased work of breathing, no retractions or nasal flaring. Back: No spinal tenderness. No costovertebral tenderness. Full range of motion. Skin: Warm, dry with normal turgor. Normal color with no rashes, no lesions, and no evidence of cellulitis. Neuro: Awake and alert, GCS 15, oriented to person, place, time, and situation. Cranial nerves II-XII grossly intact. Motor strength 5/5 in all extremities. Sensory grossly intact. jr8 20:12 19:25 09/23/2020 19:25 Discharged to Home. Impression: Pain in right knee; Pain in left vg1 ankle and joints of left foot. Condition is Stable. Forms are Medication Reconciliation Form, Thank You Letter, Antibiotic Education, Prescription Opioid Use. Follow up: Varun Cintron; When: 1 week; Reason: Recheck today's complaints, Continuance of care, Re-evaluation by your physician. Problem is new. Symptoms have improved. jr8
--- NOTE | 2020-09-23 19:26 | ER ---
[facility] Name: Conchita Pad[facility] Age: 75 yrs Sex: Female : 1945 Arrival Date: 09/23/2020 Time: 16:08 Bed 13 Private MD: Varun Cintron B Diagnosis: Pain in right knee;Pain in left ankle and joints of left foot Presentation: 09/23 16:23 Chief complaint: Patient states: Right knee pain and left ankle pain started last jl7 night, unable to bear weight. Coronavirus screen: Client denies travel out of the [place] in the last 14 days. At this time, the client does not indicate any symptoms associated with coronavirus-19. Ebola Screen: No symptoms or risks identified at this time. Initial Sepsis Screen: Does the patient meet any 2 criteria? No. Patient's initial sepsis screen is negative. Does the patient have a suspected source of infection? No. Patient's initial sepsis screen is negative. Risk Assessment: Do you want to hurt yourself or someone else? Patient reports no desire to harm self or others. Onset of symptoms was September 22, 2020. 16:23 Method Of Arrival: EMS: [facility] jl7 16:23 Acuity: [place] 3 jl7 Triage Assessment: 16:28 General: Appears in no apparent distress. uncomfortable, Behavior is calm, cooperative, jl7 appropriate for age. Pain: Complains of pain in right knee and left ankle. Historical: - Allergies: 16:28 No Known Allergies; jl7 - Home Meds: 16:28 amlodipine 5 mg tab 1 tab once daily [Active]; hydrochlorothiazide 12.5 mg Oral cap 1 jl7 cap once daily [Active]; clonidine HCl 0.1 mg Oral tab 1 tab once daily [Active]; levothyroxine 137 mcg tab 1 tab once daily [Active]; olmesartan oral oral [Active]; atorvastatin 40 mg Oral tab 1 tab once daily [Active]; - PMHx: 16:28 Hyperlipidemia; Hypertension; Hypothyroidism; jl7 - PSHx: 16:28 Cholecystectomy; Hernia repair; Hysterectomy; Knee surgery; jl7 - Immunization history:: Adult Immunizations up to date, Client reports receiving the 2nd dose of the Covid vaccine, Date received: August 04, 2020. - Social history:: Smoking status: Patient denies any tobacco usage or history of. Screenin:34 Abuse screen: Denies threats or abuse. Nutritional screening: No deficits noted. vg1 Tuberculosis screening: No symptoms or risk factors identified. Fall Risk No fall in past 12 months (0 pts). No secondary diagnosis (0 pts). No IV (0 pts). Ambulatory Aid- None/Bed Rest/Nurse Assist (0 pts). Gait- Impaired (20 pts.). Mental Status- Oriented to own ability (0 pts). Total Arnold Fall Scale indicates Low Risk Score (25-44 pts). Fall prevention measures have been instituted. Side Rails Up X 2 Placed close to Nursing Station. Assessment: 17:32 General: Appears in no apparent distress. uncomfortable, Behavior is calm, cooperative. vg1 Pain: Complains of pain in Right knee and left ankle Pain currently is 2 out of 10 on a pain scale. at worst was 10 out of 10 on a pain scale. Pain began last night Alleviated by rest, Aggravated by repositioning, weight bearing. Neuro: Level of Consciousness is awake, alert, obeys commands, Oriented to person, place, time, situation. Cardiovascular: Patient's skin is warm and dry. Respiratory: Airway is patent Respiratory effort is even, unlabored. GI: No signs and/or symptoms were reported involving the gastrointestinal system. : No signs and/or symptoms were reported regarding the genitourinary system. EENT: No signs and/or symptoms were reported regarding the EENT system. Derm: Skin is intact, Skin is pink, warm \T\ dry. Musculoskeletal: Swelling present in left ankle. 18:39 Reassessment: Patient appears in no apparent distress at this time. No changes from vg1 previously documented assessment. Patient and/or family updated on plan of care and expected duration. Pain level reassessed. Patient is alert, oriented x 3, equal unlabored respirations, skin warm/dry/pink. 19:58 Reassessment: Received VO from Kyle MONSIVAIS to administer 7.5/325 mg of Winfred PO x1. vg1 20:12 Reassessment: Patient appears in no apparent distress at this time. No changes from vg1 previously documented assessment. Patient and/or family updated on plan of care and expected duration. Pain level reassessed. Patient is alert, oriented x 3, equal unlabored respirations, skin warm/dry/pink. Vital Signs: 16:23 BP 130 / 47; Pulse 63; Resp 15 S; Temp 98.1(TE); Pulse Ox 97% on R/A; Weight 122.02 kg; jl7 Height 5 ft. 8 in. (172.72 cm); Pain 8/10; 17:34 BP 115 / 48; Pulse 75; Resp 18; Pulse Ox 97% on R/A; vg1 18:39 BP 119 / 64; Pulse 76; Resp 16; Pulse Ox 100% on R/A; vg1 20:00 BP 129 / 63; Pulse 70; Resp 16; Pulse Ox 100% on R/A; vg1 16:23 Body Mass Index 40.90 (122.02 kg, 172.72 cm) jl7 ED Course: 16:08 Patient arrived in ED. mr 16:09 Varun Cintron MD is Private Physician. mr 16:26 Triage completed. jl7 16:28 Arm band placed on right wrist. Patient placed in waiting room, in a wheelchair, jl7 Patient notified of wait time. 17:14 Avery Wright PA is PHCP. jr8 17:15 Jone Waller MD is Attending Physician. jr8 17:27 Yoko Calvillo, RN is Primary Nurse. vg1 17:35 Patient has correct armband on for positive identification. Call light in reach. Pt vg1 stated would rather sit in the ED wheelchair than get up and sit into the bed. 19:24 Varun Cintron MD is Referral Physician. jr8 19:37 XRAY Knee RIGHT 3 view In Process Unspecified. EDMS 19:37 XRAY Ankle LEFT 3 view In Process Unspecified. EDMS 20:12 No provider procedures requiring assistance completed. Patient did not have IV access vg1 during this emergency room visit. Administered Medications: 20:07 Drug: [place] (HYDROcodone-acetaminophen) (7.5 mg-325 mg) 1 tabs Route: PO; vg1 20:11 Follow up: Response: Medication administered at discharge. vg1 Outcome: 19:25 Discharge ordered by . jr8 20:12 Discharged to home via ambulance, with family. vg1 20:12 Condition: stable 20:12 Discharge instructions given to patient, Instructed on discharge instructions, follow up and referral plans. medication usage, Demonstrated understanding of instructions, follow-up care, medications, Prescriptions given X 2. 20:12 Patient left the ED. vg1 Signatures: Dispatcher [employer] SHAWN RamiresaHayley Josh, PA PA jr8 Leal, Jahala, RN RN jl7 Yoko Calvillo RN RN vg1
--- NOTE | 2020-09-23 19:52 | RAD REPORT ---
EXAM DESCRIPTION: RAD - Ankle Left 3 View - 09/23/2020 7:37 pm CLINICAL HISTORY: PAIN COMPARISON: No comparisons FINDINGS: Moderate soft tissue swelling is seen about the ankle. Small plantar calcaneal spur. No ac princess fracture or dislocation is seen.
--- NOTE | 2020-09-23 19:54 | RAD REPORT ---
EXAM DESCRIPTION: RAD - Knee Right 3 View - 09/23/2020 7:37 pm CLINICAL HISTORY: PAIN COMPARISON: No comparisons FINDINGS: Right total knee arthroplasty is noted. No hardware loosening or infection seen. No acute fracture. No joint effusion.
[2020-09-23] MEDS ORDERED: HYDROCODONE/APAP 7.5/325 MG TAB ONE (20:20)
[2020-09-23 21:40] VITALS: TEMP 98.1
[2020-09-23 21:43] VITALS: O2SAT 100
[2020-09-23 21:44] VITALS: BP 129/63
== END 2020-09-23 20:12 | disposition home or self-care (01) ==
LOC: ER 16:05
DX: M25.572 Pain in left ankle and joints of left foot (principal); I10 Essential (primary) hypertension; E78.5 Hyperlipidemia, unspecified; E03.9 Hypothyroidism, unspecified
CPT/HCPCS: 99284

== ENCOUNTER 2021-01-05 06:30 | Day surgery (SDC) | payer OTHER, MEDICARE ==
[2021-01-05] MEDS ORDERED: Ringers Lactate 1,000 ML IV ONE (07:18)
[2021-01-05 07:21] VITALS: O2SAT 100
[2021-01-05] MEDS ORDERED: LIDOCAINE 1% MPF 5 ML VIAL ONE (08:12)
[2021-01-05] MEDS ORDERED: propofoL 200 MG/20 ML VIAL IV ONE ×3 (08:12→08:46)
[2021-01-05] MEDS ORDERED: NS 0.9% VIAL 0 ML ONE (08:13)
[2021-01-05] MEDS ORDERED: EPHEDRINE SULF 50 MG/ML VIAL ONE (08:13)
[2021-01-05] MEDS ORDERED: Phenylephrine HCl 10 MG/ML 1 ML VIAL ONE (08:13)
--- NOTE | 2021-01-05 08:52 | ENDO RPT ---
[address], [address] EGD WITH DILATION PROCEDURE REPORT EXAM DATE: 01/05/2021 PATIENT NAME: Conchita Padilla MR#: [id number] BIRTHDATE: 1945 ATTENDING: Roby Mcallister Dr STATUS: outpatient PERSONNEL ADVISER: Meredith Sosa RN and Irma Cruz INDICATIONS: The patient is a 75 yr old Female here for an EGD with dilation due to mid epigastric abdominal pain, GERD, dysphagia, odynophagia, and stricture PROCEDURE PERFORMED: EGD with biopsy and EGD with dilatation over guidewire MEDICATIONS: Per Anesthesia. TOPICAL ANESTHETIC: none CONSENT: The patient understands the risks and benefits of the procedure and understands that these risks include, but are not limited to: sedation, allergic reaction, infection, perforation and/or bleeding. Alternative means of evaluation and treatment include, among others: physical exam, x-rays, and/or surgical intervention. The patient elects to proceed with this endoscopic procedure. DESCRIPTION OF PROCEDURE: During intra-op preparation period all mechanical medical equipment was checked for proper function. Hand hygiene and appropriate measures for infection prevention was taken. After the risks, benefits and alternatives of the procedure were thoroughly explained, Informed consent was verified, confirmed and timeout was successfully executed by the treatment team. The patient was anesthetized with topical anesthesia and the EG-[id number] ([id number]) endoscope was introduced through the mouth and advanced to the third portion of the duodenum. The instrument was slowly withdrawn as the mucosa was fully examined. Moderate atrophic gastritis was found in the body and the antrum of the stomach. Dilation was performed at lower esophagus. DILATOR: SIZE(S): RESISTANCE: HEME: APPEARANCE: Dilator: Savary over guidewire Size(s): 14,15 mm Resistance: moderate Heme: yes Appearance: adequate COMMENT: Retroflexed views revealed no abnormalities. ADVERSE EVENTS: There were no complications. IMPRESSIONS: 1. Non-obstructive dysphagfia, s/p 14 / 15 mm Savary dilatations 2. Moderate atrophic gastritis in the body and the antrum of the stomach, s/p biopsies by endoscope RECOMMENDATIONS: 1. await biopsy results 2. acid suppression therapy REPEAT EXAM: Roby Mcallister Dr eSigned: Roby Mcallister Dr 01/05/2021 8:52 AM cc: Varun Cintron M.D. CPT CODES: ICD9 CODES: PATIENT NAME: RandyConchita MR#: [id number]
--- NOTE | 2021-01-05 09:02 | ENDO RPT ---
[address], [address] COLONOSCOPY PROCEDURE REPORT EXAM DATE: 01/05/2021 PATIENT NAME: Conchita Padilla MR #: [id number] BIRTHDATE: 1945 ATTENDING: Roby Mcallister Dr STATUS: outpatient ROLLER INSPECTOR: Meredith Sosa RN and Irma Cruz INDICATIONS: The patient is a 75 yr old Female here for a colonoscopy due to RLQ/LLQ abdominal pain and history of polyps PROCEDURE PERFORMED: Colonoscopy with biopsy - cold polypectomy MEDICATIONS: Per Anesthesia. ESTIMATED BLOOD LOSS: None CONSENT: The patient understands the risks and benefits of the procedure and understands that these risks include, but are not limited to: sedation, allergic reaction, infection, perforation and/or bleeding. Alternative means of evaluation and treatment include, among others: physical exam, x-rays, and/or surgical intervention. The patient elects to proceed with this endoscopic procedure. DESCRIPTION OF PROCEDURE: During intra-op preparation period all mechanical medical equipment was checked for proper function. Hand hygiene and appropriate measures for infection prevention was taken. Procedure, possible complications, alternatives including, but not limited to possibility of bleeding, perforation, tear, infection, sepsis, need for surgery, need for blood transfusion, were explained to the patient. After the risks, benefits and alternatives of the procedure were thoroughly explained, Informed consent was verified, confirmed and timeout was successfully executed by the treatment team. The patient was placed in the left lateral position. A digital rectal exam was performed and revealed several skin tags. After appropriate level of anesthesia, the scope was passed. The EG-[id number] ([id number]) and EC-[id number] ([id number]) endoscope was introduced through the anus and advanced to the cecum, which was identified by both the appendix and ileocecal valve. The quality of the prep was fair. The instrument was then slowly withdrawn as the colon was fully examined. Scope withdrawal time was 8 minutes. COLON FINDINGS: Two smooth sessile polyps measuring 4 mm in size were found in the descending colon. A polypectomy was performed with cold forceps. Mild diverticulosis was noted in the sigmoid colon. No bleeding was noted from the diverticulosis. Small internal hemorrhoids were found. Retroflexed views revealed small hemorrhoids. The scope was then completely withdrawn from the patient and the procedure terminated. ADVERSE EVENTS: There were no complications. IMPRESSIONS: 1. Two 4 mm sessile polyps in the descending colon; polypectomy was performed with cold forceps 2. Mild diverticulosis in the sigmoid colon 3. Small internal hemorrhoids 4. Intubation to cecum 5. Personal history of colon polyps RECOMMENDATIONS: 1. await biopsy results 2. avoid NSAIDS for 2 weeks RECALL: Return in 3 year(s) for Colonoscopy. Roby Mcallister Dr eSigned: Roby Mcallister Dr 01/05/2021 9:02 AM cc: Varun Cintron CPT CODES: ICD9 CODES: PATIENT NAME: Conchita Padilla MR#: [id number]
[2021-01-05 09:44] VITALS: BP 136/56; TEMP 97.4
== END 2021-01-05 09:37 | disposition home or self-care (01) ==
LOC: OR 06:30
PROVIDERS: ATTEND Internal Medicine Gastroenterology
PROC: 0DB58ZX Excision of Esophagus, Via Natural or Artificial Opening Endoscopic, Diagnostic (ICD-10-PCS; 2021-01-05)
PROC: 0DB68ZX Excision of Stomach, Via Natural or Artificial Opening Endoscopic, Diagnostic (ICD-10-PCS; 2021-01-05)
PROC: 0DBM8ZX Excision of Descending Colon, Via Natural or Artificial Opening Endoscopic, Diagnostic (ICD-10-PCS; principal; 2021-01-05 07:30)
PROC: 0D738ZZ Dilation of Lower Esophagus, Via Natural or Artificial Opening Endoscopic (ICD-10-PCS; 2021-01-05 07:30)
DX: D12.4 Benign neoplasm of descending colon (principal); R10.13 Epigastric pain; K21.9 Gastro-esophageal reflux disease without esophagitis; R10.32 Left lower quadrant pain; Z86.010 Personal history of colon polyps; I10 Essential (primary) hypertension; E05.90 Thyrotoxicosis, unspecified without thyrotoxic crisis or storm; K64.8 Other hemorrhoids; Z20.822 Contact with and (suspected) exposure to COVID-19
CPT/HCPCS: 88312; 88305; 45380; 43248; 43239; U0003; J2704 ×2; J7120; C1769; J2370

== ENCOUNTER 2022-02-28 00:42 | Emergency (ER) | payer OTHER, MEDICARE ==
--- OUTSIDE RECORDS SUMMARY | 2022-02-28 00:46 | XMS REPORT | Continuity of Care Document ---
:1945 Author Organization [facility] t Address [address] [place] [address] Dr. [address]. [address] [place] [address] Care Team Providers Name Role Phone PCP, PATIENT DOES NOT HAVE A Primary Care Physician Unavaila Anastacio Cunha Attending Clinician Unavailable JUSTICE VERA Attending Clinician Unavailable NEVIN PAUL Attending Clinician Unavailable Quinton Attending Clinician Unavailable Xiomara Castrejon Attending Clinician [phone] ARACELI CHASE Attending Clinician Unavailable Anastacio Page Admitting Clinician Unavailable Quinton Admitting Clinician Unavailable Payers Payer Name Policy Type Policy Number Effective Date Expiration Date S ourramses MEDICARE PART A \T\ [id number] 2011 B 00:00:00 [facility] [id number] 2021 MEDICARE SUPPLEMENT 00:00:00 MEDICARE B-[place]: [id number] 2011 [employer] 00:00:00 [facility] [id number] 2014 OPTIONS (MEDICARE 00:00:00 SUPPLEMENT) Problems Condition Condition Condition Status Onset Resolution Last Treating Co mments Source Name Details Category Date Date Treatment Clinician Date Constipati Constipati Problem Active P rivia on on 09-20 Medical 00:00: 00 Prolapse Prolapse Problem Active [facility] a of female of Female 5-10 Medi geraldine genital Genital 00:00: organs Organs 00 Urinary Urinary Problem Active [facility] incontinen Incontinen 5-10 Me dical ce ce 00:00: 00 Body mass Body Mass Problem Active Mariam via index 40+ Index 40+ 5-10 Medi geraldine - severely - Severely 00:00: obese Obese 00 No known No known Disease Metho di active active st problems problems Hospit a l Allergies, Adverse Reactions, Alerts Allergy Allergy Status Severity Reaction(s) Onset Inactive Treating Comm ents Source Name Type Date Date Clinician No Known DA Active U [facility] Allergie 2-22 Clear s 00:00: Crespo 00 [facility] No Known DA Active U 2015-05 [facility] Drug 0-06 Clear Allergie 00:00: Crespo s 00 [facility] NO KNOWN Drug Active Univers ALLERGIE Class ity of S [facility] Family History Family Member Diagnosis Comments Start Date Stop Date Source Natural brother Cancer [facility] Social History Social Habit Start Date Stop Date Quantity Comments Source Alcohol intake 2020-04-26 2020-04-26 [facility] 00:00:00 00:00:00 non-drinker Hospital (finding) Tobacco use and 2020-03-26 2020-03-26 Smokeless tobacco [facility] exposure 00:00:00 00:00:00 non-user Hospital Sex Ass[birth year] At [birth year] [facility] 00:00:00 00:00:00 Hospital Smoking Status Start Date Stop Date Source Never Smoker [facility] Medications Ordered Filled Start Stop Current Ordering Indication Dosage Frequency Signature Comments Components Source Medication Medication Date Date Medication? Clinician (SIG) Name Name gabapentin 2019-05- No [id number] 100mg [id number] Take 1 [facility] (Neurontin) 06-[id number] 100 mg 00:00: 05:59 3D (100 mg Hospita capsule 00 :00 total) by l mouth 3 (three) times a day. clonIDINE 2019-05 Yes .1mg QD Take 0.1 Meth [facility] (CATAPRES) 0-[address] 0.1 MG 00:00: mouth [facility]osp[facility] tablet 00 nightly. l hydroCHLORO 2019-05 Yes TK 1 T PO M ethodi thiazide 0-[address] (HYDRODIURI 00:00: Hospit a L) 12.5 MG 00 l tablet cholecalcif 2019-05 Yes TK 1 C PO M ethodi nan, 0-[address] vitamin D3, 00:00: Hospit a 1,250 mcg 00 l (50,000 unit) capsule amLODIPine 2019-0 Yes 5mg QD Take 5 mg Me thodi (NORVASC) 5 02-[address] mg tablet 00:00: daily. Hospit a 00 l atorvastati 2019-0 Yes 40mg QD Take 40 mg [facility] n (LIPITOR) 02-[address] 40 mg 00:00: daily. Hospita tablet 00 l traMADoL 2019-0 Yes 50mg Take 50 mg Met hodi (ULTRAM) 50 02-[address] mg tablet 00:00: Hospita 00 l omeprazole 2019-0 Yes TK ONE C Met hodi (PriLOSEC) 01-[address] 40 MG 00:00: MINUTES [facility]ospita capsule 00 BEFORE l MORNING MEAL amlodipine amlodipine No amlodipine [facility] 5 mg tablet 5 mg tablet 5 mg M edical TAKE 1 TAKE 1 tablet TABLET BY TABLET BY TAKE 1 MOUTH EVERY MOUTH EVERY TABLET BY DAY DAY MOUTH EVERY DAY atorvastati atorvastati No atorvastat [facility] n 40 mg n 40 mg in 40 mg Medic al tablet TAKE tablet TAKE tablet 1 TABLET BY 1 TABLET BY TAKE 1 MOUTH EVERY MOUTH EVERY TABLET BY DAY DAY MOUTH EVERY DAY clonidine clonidine No clonidine [facility] HCl 0.1 mg HCl 0.1 mg HCl 0.1 mg Medical tablet TAKE tablet TAKE tablet 1 TABLET BY 1 TABLET BY TAKE 1 MOUTH EVERY MOUTH EVERY TABLET BY NIGHT AT NIGHT AT MOUTH BEDTIME BEDTIME EVERY NIGHT AT BEDTIME estradiol estradiol No estradiol [facility] 0.01% (0.1 0.01% (0.1 0.01% (0.1 Medical mg/gram) mg/gram) mg/gram) vaginal vaginal vaginal cream 1 g cream 1 g cream 1 g per vagina per vagina per vagina nightly for nightly for nightly 2 weeks, 2 weeks, for 2 then 1 g then 1 g weeks, per vagina per vagina then 1 g twice twice per vagina weekly at weekly at twice bedtime bedtime weekly at bedtime hydrochloro hydrochloro No hydrochlor [facility] thiazide thiazide othiazide Me dical levothyroxi levothyroxi No levothyrox [facility] ne 125 mcg ne 125 mcg ine 125 Medical tablet TAKE tablet TAKE mcg tablet 1 TABLET BY 1 TABLET BY TAKE 1 MOUTH DAILY MOUTH DAILY TABLET BY IN THE IN THE MOUTH MORNING ON MORNING ON DAILY IN AN EMPTY AN EMPTY THE STOMACH STOMACH MORNING ON AN EMPTY STOMACH nitrofurant nitrofurant No nitrofuran [facility] oin oin toin Medical monohydrate monohydrate monohydrat /macrocryst /macrocryst e/macrocry als 100 mg als 100 mg stals 100 capsule capsule mg capsule Take 1 Take 1 Take 1 capsule(s) capsule(s) capsule(s) after each after each after each visit visit visit olmesartan olmesartan No olmesartan [facility] 40 mg 40 mg 40 mg Medical tablet TAKE tablet TAKE tablet 1 TABLET BY 1 TABLET BY TAKE 1 MOUTH DAILY MOUTH DAILY TABLET BY MOUTH DAILY [place] 3-6-9 [place] 3-6-9 No [place] [facility] 3-6-9 Medical turmeric turmeric No turmeric [facility] via Medical Vitamin C Vitamin C No Vitamin C [facility] 1,000 mg 1,000 mg 1,000 mg Med ical tablet Take tablet Take tablet by oral by oral Take by route. route. oral route. Vitamin D Vitamin D No Vitamin D [facility] zinc 50 mg zinc 50 mg No zinc 50 mg [facility] tablet Take tablet Take tablet Medical by oral by oral Take by route. route. oral route. Vital Signs Vital Name Observation Time Observation Value Comments Source BP Diastolic 2020-09-20 00:00:00 68 mm[Hg] [facility] Height 2020-09-20 00:00:00 68 [in_i] Perez gomez BMI (Body Mass Index) 2020-09-20 00:00:00 40.9 kg/m2 [facility] Medical BP Systolic 2020-09-20 00:00:00 138 mm[Hg] [facility] Body Weight 2020-09-20 00:00:00 269 [lb_av] Perez gomez Procedures Procedure Date / Time Performed Performing Clinician Sour e MAMMO, screening, bilateral 2020-09-20 00:00:00 [facility] Cholecyst[facility] 2012-05[facility]14 [facility] Laparoscopic [place] 2011-05-14 00:00:00 Perez Stanton edical Fundoplication Using Abdominal Approach Hysterectomy - Abdominal 1984-05-14 00:00:00 Mariam via Medical Exploratory Laparotomy 1962-05-14 00:00:00 [facility] Complete Repair of Rotator [facility] Cuff Orthopedic - Knee [facility] Replacement Plan of Care Planned Activity Planned Date Details Comments Source Future Scheduled 2022-01-12 HEPATITIS B VACCINES [facility] Test 03:16:42 (1 of 3 - 3-dose series) [code = HEPATITIS B VACCINES (1 of 3 - 3-dose series)] Future Scheduled 2022-01-12 COVID-19 VACCINE (#[facility]) [facility] Test 03:16:42 [code = COVID-19 VACCINE (#1)] Future Scheduled 2022-01-12 Hepatitis C screening [facility] Test 03:16:42 (procedure) [code = 776236716] Future Scheduled 2022-01-12 BREAST CANCER [facility] Test 03:16:42 SCREENING [code = BREAST CANCER SCREENING] Future Scheduled 2022-01-12 COLONOSCOPY SCREENING [facility] Test 03:16:42 [code = COLONOSCOPY SCREENING] Future Scheduled 2022-01-12 SHINGLES VACCINES (1 [facility] Test 03:16:42 of 2) [code = SHINGLES VACCINES (1 of 2)] Future Scheduled 2022-01-12 65+ [facility] 03:16:42 VACCINE (1 - PCV) [code = 65+ PNEUMOCOCCAL VACCINE (1 - PCV)] Future Scheduled 2022-01-12 INFLUENZA VACCINE [facility] Test 03:16:42 [code = INFLUENZA VACCINE] Diagnostic Test 2020-09-20 culture, urine [code [facility] Pending 00:00:00 = culture, urine] Diagnostic Test 2020-09-20 urinalysis, complete [facility] Pending 00:00:00 [code = urinalysis, complete] Encounters Start End Encounter Admission Attending Care Care Encounter Source Date/Time Date/Time Type Type Clinicians Facility Department ID 2021-07-05 2021-07-10 Inpatient EM GARETT Page MEDI.01 [id number] [facility] 15:25:00 10:27:00 Anastacio Guerrero [facility] 2021-07-05 2021-07-10 Inpatient EM GARETT Page MEDI. [id number] [facility] 15:25:00 10:27:00 Anastacio Guerrero [facility] 2021-06-03 2021-06-03 Outpatient SKYLAR ARANA RIHARVEY [id number] [facility] 16:00:00 16:00:[address] [facility] 2021-05-14 2021-05-14 Outpatient Snehal PAUL [facility] [id number] 18:00:00 18:25:[address] [facility] 2020-09-21 2020-09-21 Outpatient _[facility] PRIV PRIV [id number] [facility] 03:32:00 03:32:00 _[place] [id number] Medica l 2020-09-20 2020-09-20 Outpatient GC_[facility] PRIV PRIV [id number] [facility] 04:15:00 04:15:00 _[place] [id number] Medica l 2020-09-20 2020-09-20 Xiomara PRIV [place] - [facility] 00:00:00 00:00:00 Simi [facility] - Medic al Lucía, _[facility] MD: [id number], Office* [address], [place] [address] , Ph. [phone] 2020-09-20 2020-09-20 Outpatient Lucía, PRIV PRIV [id number] 00:00:00 00:00:00 Xiomara [id number] Simi [id number] 2020-04-26 2020-04-26 Outpatient [facility] [id number] [place] 00:00:00 00:00:00 , ARACELI [address] 2020-03-26 2020-03-26 Outpatient [facility] [id number] [place] 00:00:00 00:00:00 , ARACELI [address] 2015-08-23 2015-08-23 Outpatient [facility] PRIV PRIV [id number] [facility] 04:20:00 04:20:00 _[place] [id number] Medica l Results Test Description Test Time Test Comments Results Result Comments Source BASIC METABOLIC PANEL 2021-07-10 08:01:00 Test Item Value Reference Range Interpretation Comme nts SODIUM (test code = NA) 144 mEq/L 134-147 N POTASSIUM (test code = K) 3.6 mEq/L 3.4-5.0 N CHLORIDE (test code = CL) 112 mEq/L 100-108 H CARBON DIOXIDE (test code = CO2) 21 mEq/l 21-33 N ANION GAP (test code = GAP) 15 0-20 N GLUCOSE (test code = GLU) 94 mg/dL 70-110 N BLOOD UREA NITROGEN (test code = 15 mg/dL 7-18 N BUN) GLOMERULAR FILTRATION RATE (test 73.9 70-80 N Units of measure = ml/min/1.73 code = GFR) m2 CREATININE (test code = CREAT) 0.9 mg/dL 0.6-1.3 N CALCIUM (test code = CA) 8.1 mg/dL 8.0-10.5 N GLUCOSE [id number] 07:59:00 Test Item Value Reference Range Interpretation Comments GLUCOSE BEDSIDE (test 103 MG/DL 70-110 N [facility] med by certified code = GLUBED) 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 CBC W/AUTO [id number] 07:48:00 Test Item Value Reference Range Interpretation Comments WHITE BLOOD CELL (test code = 9.0 x10 3/uL 4.5-11.0 N WBC) RED BLOOD CELL (test code = 3.22 x10 6/uL 3.54-5.02 L RBC) HEMOGLOBIN (test code = HGB) 10.3 g/dL 11.0-15.0 L HEMATOCRIT (test code = HCT) 31.7 % 33.0-45.0 L MEAN CELL VOLUME (test code = 98.4 fL 81.0-99.0 N MCV) MEAN CELL HGB (test code = MCH) 32.0 pg 27.0-33.0 N MEAN CELL HGB CONCETRATION 32.5 g/dL 33.0-37.0 L (test code = MCHC) RED CELL DISTRIBUTION WIDTH CV 14.7 % 11.5-14.5 H (test code = RDW) RED CELL DISTRIBUTION WIDTH SD 53.6 fL 37.0-54.0 N (test code = RDW-SD) PLATELET COUNT (test code = 347 x10 3/uL 150-400 N PLT) MEAN PLATELET VOLUME (test code 9.6 fL 7.0-9.0 H = MPV) NEUTROPHIL % (test code = NT%) 61.9 % 56.0-77.0 N IMMATURE GRANULOCYTE % (test 0.9 % 0.0-2.0 N code = IG%) LYMPHOCYTE % (test code = LY%) 24.3 % 14.0-32.0 N MONOCYTE % (test code = MO%) 9.5 % 4.8-9.0 H EOSINOPHIL % (test code = EO%) 2.8 % 0.3-3.7 N BASOPHIL % (test code = BA%) 0.6 % 0.0-2.0 N NUCLEATED RBC % (test code = 0.0 % 0-0 N NRBC%) NEUTROPHIL # (test code = NT#) 5.55 x10 3/uL 2.0-7.6 N IMMATURE GRANULOCYTE # (test 0.08 x10 3/uL 0.00-0.03 H code = IG#) LYMPHOCYTE # (test code = LY#) 2.18 x10 3/uL 1.0-3.8 N MONOCYTE # (test code = MO#) 0.85 x10 3/uL 0.1-0.8 H EOSINOPHIL # (test code = EO#) 0.25 x10 3/uL 0.0-0.2 H BASOPHIL # (test code = BA#) 0.05 x10 3/uL 0.0-0.2 N NUCLEATED RBC # (test code = 0.00 x10 3/uL 0.0-0.1 N NRBC#) MANUAL DIFF REQUIRED (test code NO = MDIFF) GLUCOSE [id number] 19:21:00 Test Item Value Reference Range Interpretation Comments GLUCOSE BEDSIDE (test 117 MG/DL 70-110 H Perfor med by certified code = GLUBED) 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 [facility] GLUCOSE [id number] 17:15:00 Test Item Value Reference Range Interpretation Comments GLUCOSE BEDSIDE (test 134 MG/DL 70-110 H Perfor med by certified code = GLUBED) 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 [facility] GLUCOSE [id number] 12:18:00 Test Item Value Reference Range Interpretation Comments GLUCOSE BEDSIDE (test 117 MG/DL 70-110 H Perfor med by certified code = GLUBED) 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 [facility] GLUCOSE [id number] 08:15:00 Test Item Value Reference Range Interpretation Comments GLUCOSE BEDSIDE (test 89 MG/DL 70-110 N Perfor med by certified code = GLUBED) 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 [facility] BASIC METABOLIC [id number] 08:03:00 Test Item Value Reference Range Interpretation Comments SODIUM (test code = NA) 143 mEq/L 134-147 N POTASSIUM (test code = 3.8 mEq/L 3.4-5.0 N K) CHLORIDE (test code = 110 mEq/L 100-108 H CL) CARBON DIOXIDE (test 20 mEq/l 21-33 L code = CO2) ANION GAP (test code = 17 0-20 N GAP) GLUCOSE (test code = 98 mg/dL 70-110 N GLU) BLOOD UREA NITROGEN 13 mg/dL 7-18 (test code = BUN) GLOMERULAR FILTRATION 65.4 70-80 L Units of measure = RATE (test code = GFR) ml/mi n/1.73 m2 CREATININE (test code = 1.0 mg/dL 0.6-1.3 N CREAT) CALCIUM (test code = 8.3 mg/dL 8.0-10.5 N CA) CBC W/AUTO [id number] 07:48:00 Test Item Value Reference Range Interpretation Comments WHITE BLOOD CELL (test code = 12.4 x10 3/uL 4.5-11.0 H WBC) RED BLOOD CELL (test code = 3.60 x10 6/uL 3.54-5.02 N RBC) HEMOGLOBIN (test code = HGB) 11.8 g/dL 11.0-15.0 N HEMATOCRIT (test code = HCT) 35.7 % 33.0-45.0 N MEAN CELL VOLUME (test code = 99.2 fL 81.0-99.0 H MCV) MEAN CELL HGB (test code = MCH) 32.8 pg 27.0-33.0 N MEAN CELL HGB CONCETRATION 33.1 g/dL 33.0-37.0 N (test code = MCHC) RED CELL DISTRIBUTION WIDTH CV 14.6 % 11.5-14.5 H (test code = RDW) RED CELL DISTRIBUTION WIDTH SD 54.0 fL 37.0-54.0 N (test code = RDW-SD) PLATELET COUNT (test code = 370 x10 3/uL 150-400 N PLT) MEAN PLATELET VOLUME (test code 10.4 fL 7.0-9.0 H = MPV) NEUTROPHIL % (test code = NT%) 66.9 % 56.0-77.0 N IMMATURE GRANULOCYTE % (test 0.9 % 0.0-2.0 N code = IG%) LYMPHOCYTE % (test code = LY%) 20.4 % 14.0-32.0 N MONOCYTE % (test code = MO%) 9.7 % 4.8-9.0 H EOSINOPHIL % (test code = EO%) 1.9 % 0.3-3.7 N BASOPHIL % (test code = BA%) 0.2 % 0.0-2.0 N NUCLEATED RBC % (test code = 0.0 % 0-0 N NRBC%) NEUTROPHIL # (test code = NT#) 8.27 x10 3/uL 2.0-7.6 H IMMATURE GRANULOCYTE # (test 0.11 x10 3/uL 0.00-0.03 H code = IG#) LYMPHOCYTE # (test code = LY#) 2.53 x10 3/uL 1.0-3.8 N MONOCYTE # (test code = MO#) 1.20 x10 3/uL 0.1-0.8 H EOSINOPHIL # (test code = EO#) 0.24 x10 3/uL 0.0-0.2 H BASOPHIL # (test code = BA#) 0.03 x10 3/uL 0.0-0.2 N NUCLEATED RBC # (test code = 0.00 x10 3/uL 0.0-0.1 N NRBC#) MANUAL DIFF REQUIRED (test code NO = MDIFF) GLUCOSE [id number] 21:20:00 Test Item Value Reference Range Interpretation Comments GLUCOSE BEDSIDE (test 137 MG/DL 70-110 H Perfor med by certified code = GLUBED) 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 COMPREHENSIVE METABOLIC [id number] 05:05:00 Test Item Value Reference Range Interpretation Comments SODIUM (test code = NA) 140 mEq/L 134-147 N POTASSIUM (test code = 3.4 mEq/L 3.4-5.0 N K) CHLORIDE (test code = 107 mEq/L 100-108 N CL) CARBON DIOXIDE (test 22 mEq/l 21-33 N code = CO2) ANION GAP (test code = 14 0-20 N GAP) GLUCOSE (test code = 112 mg/dL 70-110 H GLU) BLOOD UREA NITROGEN 20 mg/dL 7-18 H (test code = BUN) GLOMERULAR FILTRATION 58.6 70-80 L Units of measure = RATE (test code = GFR) ml/mi n/1.73 m2 CREATININE (test code = 1.1 mg/dL 0.6-1.3 CREAT) TOTAL PROTEIN (test 5.6 g/dL 6.4-8.2 L code = PROT) ALBUMIN (test code = 2.80 g/dL 3.4-5.0 L ALB) CALCIUM (test code = 9.0 mg/dL 8.0-10.5 N CA) BILIRUBIN TOTAL (test 0.70 mg/dL 0.0-1.0 N code = BILT) SGOT/AST (test code = 36 IUnit/L 15-37 N AST) SGPT/ALT (test code = 71 IUnit/L 30-65 H ALT) ALKALINE PHOSPHATASE 169 IUnit/L 20-125 H TOTAL (test code = ALKP) CBC W/AUTO [id number] 04:50:00 Test Item Value Reference Range Interpretation Comments WHITE BLOOD CELL (test code = 13.6 x10 3/uL 4.5-11.0 H WBC) RED BLOOD CELL (test code = 3.27 x10 6/uL 3.54-5.02 L RBC) HEMOGLOBIN (test code = HGB) 10.7 g/dL 11.0-15.0 L HEMATOCRIT (test code = HCT) 31.8 % 33.0-45.0 L MEAN CELL VOLUME (test code = 97.2 fL 81.0-99.0 MCV) MEAN CELL HGB (test code = 32.7 pg 27.0-33.0 N MCH) MEAN CELL HGB CONCETRATION 33.6 g/dL 33.0-37.0 N (test code = MCHC) RED CELL DISTRIBUTION WIDTH CV 14.4 % 11.5-14.5 N (test code = RDW) RED CELL DISTRIBUTION WIDTH SD 52.0 fL 37.0-54.0 N (test code = RDW-SD) PLATELET COUNT (test code = 311 x10 3/uL 150-400 N PLT) MEAN PLATELET VOLUME (test 9.6 fL 7.0-9.0 H code = MPV) NEUTROPHIL % (test code = NT%) 74.3 % 56.0-77.0 N IMMATURE GRANULOCYTE % (test 1.0 % 0.0-2.0 N code = IG%) LYMPHOCYTE % (test code = LY%) 15.2 % 14.0-32.0 N MONOCYTE % (test code = MO%) 8.3 % 4.8-9.0 N EOSINOPHIL % (test code = EO%) 1.0 % 0.3-3.7 N BASOPHIL % (test code = BA%) 0.2 % 0.0-2.0 N NUCLEATED RBC % (test code = 0.0 % 0-0 N NRBC%) NEUTROPHIL # (test code = NT#) 10.10 x10 3/uL 2.0-7.6 H IMMATURE GRANULOCYTE # (test 0.13 x10 3/uL 0.00-0.03 H code = IG#) LYMPHOCYTE # (test code = LY#) 2.07 x10 3/uL 1.0-3.8 N MONOCYTE # (test code = MO#) 1.13 x10 3/uL 0.1-0.8 H EOSINOPHIL # (test code = EO#) 0.14 x10 3/uL 0.0-0.2 N BASOPHIL # (test code = BA#) 0.03 x10 3/uL 0.0-0.2 N NUCLEATED RBC # (test code = 0.00 x10 3/uL 0.0-0.1 N NRBC#) MANUAL DIFF REQUIRED (test NO code = MDIFF) GLUCOSE [id number] 20:09:00 Test Item Value Reference Range Interpretation Comments GLUCOSE BEDSIDE (test 147 MG/DL 70-110 H Perfor med by certified code = GLUBED) 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 ACUTE HEPATITIS [id number] 18:16:00 Test Item Value Reference Range Interpretation Comments AB HEPATITIS A IGM (test NON REACTIVE INDEX NON REACT. code = HAVMAB) AG HEPATITIS B SURFACE NON REACTIVE INDEX NonReactive (test code = HBSAG) AB HEPATITIS B CORE IGM NON REACTIVE INDEX NON REACT. (test code = HBCMAB) AB HEPATITIS C (test code NON REACTIVE INDEX NON REACT. = HCVAB) COMPREHENSIVE METABOLIC [id number] 17:30:00 Test Item Value Reference Range Interpretation Comments SODIUM (test code = NA) 140 mEq/L 134-147 POTASSIUM (test code = 3.4 mEq/L 3.4-5.0 K) CHLORIDE (test code = 107 mEq/L 100-108 N CL) CARBON DIOXIDE (test 21 mEq/l 21-33 N code = CO2) ANION GAP (test code = 15 0-20 N GAP) GLUCOSE (test code = 152 mg/dL 70-110 H GLU) BLOOD UREA NITROGEN 19 mg/dL 7-18 H (test code = BUN) GLOMERULAR FILTRATION 41.0 70-80 L Units of measure = RATE (test code = GFR) ml/mi n/1.73 m2 CREATININE (test code = 1.5 mg/dL 0.6-1.3 H CREAT) TOTAL PROTEIN (test 6.5 g/dL 6.4-8.2 N code = PROT) ALBUMIN (test code = 3.20 g/dL 3.4-5.0 L ALB) CALCIUM (test code = 9.0 mg/dL 8.0-10.5 N CA) BILIRUBIN TOTAL (test 0.60 mg/dL 0.0-1.0 code = BILT) SGOT/AST (test code = 47 IUnit/L 15-37 H AST) SGPT/ALT (test code = 94 IUnit/L 30-65 H ALT) ALKALINE PHOSPHATASE 195 IUnit/L 20-125 H TOTAL (test code = ALKP) [id number] 17:30:00 Test Item Value Reference Range Interpretation Comments MAGNESIUM (test code = MAG) 2.06 mg/dL 1.80-2.40 N TSH REFLEX TO [id number] 17:30:00 Test Item Value Reference Range Interpretation Comments TSH REFLEX TO FT4 (test code = 3.35 IU/mL 0.42-5.47 N TSHREFLEX) GLUCOSE [id number] 17:09:00 Test Item Value Reference Range Interpretation Comments GLUCOSE BEDSIDE (test 151 MG/DL 70-110 H Perfor med by certified code = GLUBED) 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 [facility] GLUCOSE [id number] 08:35:00 Test Item Value Reference Range Interpretation Comments GLUCOSE BEDSIDE (test 109 MG/DL 70-110 N Perfor med by certified code = GLUBED) 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 [facility] GLUCOSE [id number] 20:36:00 Test Item Value Reference Range Interpretation Comments GLUCOSE BEDSIDE (test 141 MG/DL 70-110 H Perfor med by certified code = GLUBED) 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 - CT ANGIO [id number] 00:00:00 [facility] ZENOBIA CRESPOName: SALAZAR HILL : 1945 Sex: F Name: SALAZAR HILL [facility] : 1945 Age/S: 76 / F [address] [place] [address] Unit #: [id number] Loc:[place] [address] Phys: Damaso Reyna MD Acct: [id number] Dis Date: Status: ADM IN PHONE #: [phone] Exam Date: 07/06/2021 1054 FAX #: [phone] Reason: cva EXAMS: CPT CODE: [id number] CT ANGIOHEAD [id number] PROCEDURE INFORMATION: Exam: CT Angiography Head With Contrast, Arteriography Exam date an d time: 07/06/2021 10:53 AM Age: 76 years old Clinical indication: Other: CVA, severe headache TECHNIQUE: Imaging protocol: Computed tomography angiography of the head with contrast. Exam focused on thearteries. 3D rendering (Not supervised by radiologist): MIP and/or 3D reconstructed images were created by the technologist. Radiation optimization: All CT scans at this facility use at least one of these dose optimization techniques: automated exposure control; mA and/or kV adjustment per patient size (includes targeted exams where dose is matched to clinical indication); or iterative reconstruction. Contrast material: ISO; Contrast volume: 100 ml; Contrast route: INTRAVENOUS (IV); COMPARISON: MRI BRAIN W/O CONT, MRI BRAIN W/O CONT 07/05/2021 11:31 AM FINDINGS: ANTERIOR CIRCULATION: Right internal carotid artery: Unremarkable. Intracranial segment is patent with no significant stenosis. No aneurysm. Right middle cerebral artery: Unremarkable. No occlusion or significant stenosis. No aneurysm. Right anterior cerebral artery: Unremarkable. No occlusion or significant stenosis. No aneurysm. Left internal carotid artery: Unremarkable. Intracranial segment is patent with no significant stenosis. No aneurysm. Left middle cerebral artery: Unremarkable. No occlusion or significant stenosis. No aneurysm. Left anterior cerebral artery: Unremarkable. No occlusion or significant stenosis. No aneurysm. POSTERIOR CIRCULATION: Right vertebral artery: Unremarkable. No occlusion or significant stenosis. No aneurysm. Left vertebral artery: Unremarkable. No occlusion or significant stenosis. No aneurysm. Basilar artery: Unremarkable. No occlusion or significant stenosis. No aneurysm. Right posterior cerebral artery: Unremarkable. No occlusion or significant stenosis. No aneurysm. Left posterior cerebral artery: Unremarkable. No occlusion or significant stenosis. No aneurysm. Brain: No definite mass, mass effect, or midline shift. PAGE 1 Signed Report (CONTINUED) Name: SALAZAR HILL [facility] : 1945 Age/S: 76 / F [address] [place] [address] Unit #: [id number] Loc: [place] [address] Phys: Damaso Reyna MD Acct: [id number] Dis Date: Status: ADM IN PHONE #: [phone] Exam Date: 07/06/2021 1054FAX #: [phone] Reason: cva EXAMS: CPT CODE: [id number] CT ANGIO HEAD [address]9665 (Continued) Cerebral ventricles: No ventriculomegaly. Bones/joints: Unremarkable. No acute fracture. Soft tissues: Unremarkable. PROCEDURE INFORMATION: Exam: CT Angiography Neck With Contrast Exam date and time: 07/06/2021 10:53 AM Age: 76 years old Clinical indication: Other: CVA, severe headache TECHNIQUE: Imaging protocol: Computed tomography angiography of the neck with contrast. 3D rendering (Not supervised by radiologist): MIP and/or 3D reconstructed images were created by the technologist. Radiation optimization: All CT scans at this facility use at least one of these dose optimization techniques: automated exposure control; mA and/or kV adjustment per patient size (includes targeted ex ams where dose is matched to clinical indication); or iterative reconstruction. Contrast material: ISO; Contrast volume: 100 ml; Contrast route: INTRAVENOUS (IV); COMPARISON: MRI BRAIN W/O CONT, MRI BRAIN W/O CONT 07/05/2021 11:31 AM FINDINGS: Right common carotid artery: No stenosis. No dissection or occlusion. Right internal carotid artery: No stenosis of the extracranial segment. No dissection or occlusion. Right external carotid artery: No occlusion or stenosis of the origin. Left common carotid artery: No stenosis. No dissection or occlusion. Left internal carotid artery: No stenosis of the extracranial segment. No dissection or occlusion. Left external carotid artery: No occlusion or stenosisof the origin. Right vertebral artery: No stenosis. No dissection or occlusion. Left vertebral artery: No stenosis. No dissection or occlusion. Other arteries: The subclavian arteries are patent. Soft tissues: Normal. No significant soft tissue swelling. Bones/joints: No acute fracture. Pleural spaces: There is a small right pleural effusion. There are airspace opacities in the right upper lung concerning for pneumonia. PAGE 2 Signed Report (CONTINUED) Name: SALAZAR HILL [facility] : 1945 Age/S: 76 / F [address] [place] [address] Blvd Unit #: [id number] Loc: [place] [address] Phys: Damaso Reyna MD Acct: [id number] Dis Date: Status: ADM IN PHONE #: [phone] Exam Date: 07/06/2021 1054 FAX #: [phone] Reason: cva EXAMS: CPT CODE: [id number] CT ANGIO HEAD 22834 (Continued) REFERENCES: NASCET CRITERIA. The degree of internal carotid artery stenosis is based on NASCET criteria. Normal isno stenosis. Mild is less than 50% stenosis. Moderate is 50-69% stenosis. Severe is 70% to 99% stenosis. Total occlusion is no detectable patent lumen. IMPRESSION: CT Angiography Head With Contrast, Arteriography No large vessel stenosis or occlusion. CT Angiography Neck With Contrast 1. No stenosis or occlusion. 2. Small right pleural effusion and airspace opacity in the right upper lung suggestive of pneumonia. Lung neoplasm cannot be excluded on this exam and CT chest may be performed. at 1130 Reported and signed by: Cyrus Lemus M.D. CC: Evens Carreon DO; Damaso Ryena MD Technologist:Ivonne Blanchard RT(R)(CT); .. CTDI: DLP: Trnscb Date/Time: 07/06/2021 (1130) [email or web address] Orig Print D/T: S: 07/06/2021 (1354)PAGE 3 Signed Report- CT ANGIO NECK 2021-07-06 00:00:00 [facility] 1945 Sex: F Name: SALAZAR HILL [facility] [place] : 1945 Age/S: 76 / F [address] [place], [place] [address]vd Unit #: [id number] Loc: [place] [address] Phys: Damaso Reyna MD Acct: [id number] Dis Date: Status: ADM IN PHONE #: [phone] Exam Date: 07/06/2021 1054 FAX #: [phone] Reason: cva EXAMS: CPT CODE: [id number] CT ANGIO NECK 95273 PROCEDURE INFORMATION: Exam: CT Angiography Head With Contrast, Arteriography Exam date and time: 07/06/2021 10:53 AM Age: 76 years old Clinical indication: Other: CVA, severe headache TECHNIQUE: Imaging protocol: Computed tomography angiography of the head with contrast. Exam focused on the arteries. 3D rendering (Not supervised by radiologist): MIP and/or 3D reconstructed images were created by the technologist. Radiation optimization: All CT scans at this facility use at least one of these dose optimization techniques: automated exposure control; mA and/or kV adjustment per patient size (includes targeted exams where dose is matched to clinical indication); or iterative reconstructi on. Contrast material: ISO; Contrast volume: 100 ml; Contrast route: INTRAVENOUS (IV); COMPARISON: MRI BRAIN W/O CONT, MRI BRAIN W/O CONT 07/05/2021 11:31 AM FINDINGS: ANTERIOR CIRCULATION: Right internal carotid artery: Unremarkable. Intracranial segment is patent with no significant stenosis. No aneurysm. Right middle cerebral artery: Unremarkable. No occlusion or significant stenosis. No aneurysm. Right anterior cerebral artery: Unremarkable. No occlusion or significant stenosis. No aneurysm. Leftinternal carotid artery: Unremarkable. Intracranial segment is patent with no significant stenosis. No aneurysm. Left middle cerebral artery: Unremarkable. No occlusion or significant stenosis. No aneurysm. Left anterior cerebral artery: Unremarkable. No occlusion or significant stenosis. No aneurysm.POSTERIOR CIRCULATION: Right vertebral artery: Unremarkable. No occlusion or significant stenosis. No aneurysm. Left vertebral artery: Unremarkable. No occlusion or significant stenosis. No aneurysm. Basilar artery: Unremarkable. No occlusion or significant stenosis. No aneurysm. Right posterior cerebral artery: Unremarkable. No occlusion or significant stenosis. No aneurysm. Left posterior cerebral artery: Unremarkable. No occlusion or significant stenosis. No aneurysm. Brain: No definite mass, mass effect, or midline shift. PAGE 1 Signed Report (CONTINUED) Name: SALAZAR HILL [facility] [place] : 1945 Age/S: 76 / F [address] [place] [address] Blvd Unit #: [id number] Loc: [place] [address] Phys: Damaso Reyna MD Acct: [id number] Dis Date: Status: ADM IN PHONE #: [phone] Exam Date: 07/06/2021 1054FAX #: [phone] Reason: cva EXAMS: CPT CODE: [id number] CT ANGIO NECK 15368 (Continued) Cerebral ventricles: No ventriculomegaly. Bones/joints: Unremarkable. No acute fracture. Soft tissues: Unremarkable. PROCEDURE INFORMATION: Exam: CT Angiography Neck With Contrast Examdate and time: 07/06/2021 10:53 AM Age: 76 years old Clinical indication: Other: CVA, severe headacheTECHNIQUE: Imaging protocol: Computed tomography angiography of the neck with contrast. 3D rendering(Not supervised by radiologist): MIP and/or 3D reconstructed images were created by the technologist. Radiation optimization: All CT scans at this facility use at least one of these dose optimization techniques: automated exposure control; mA and/or kV adjustment per patient size (includes targeted exams where dose is matched to clinical indication); or iterative reconstruction. Contrast material: ISO; Contrast volume: 100 ml; Contrast route: INTRAVENOUS (IV); COMPARISON: MRI BRAIN W/O CONT, MRI BRAIN W/O CONT 07/05/2021 11:31 AM FINDINGS: Right common carotid artery: No stenosis. No dissection or o cclusion. Right internal carotid artery: No stenosis of the extracranial segment. No dissection or occlusion. Right external carotid artery: No occlusion or stenosis of the origin. Left common carotid artery: No stenosis. No dissection or occlusion. Left internal carotid artery: No stenosis of the ex tracranial segment. No dissection or occlusion. Left external carotid artery: No occlusion or stenosis of the origin. Right vertebral artery: No stenosis. No dissection or occlusion. Left vertebral artery: No stenosis. No dissection or occlusion. Other arteries: The subclavian arteries are patent. Soft tissues: Normal. No significant soft tissue swelling. Bones/joints: No acute fracture. Pleural spaces: There is a small right pleural effusion. There are airspace opacities in the right upper lung concerning for pneumonia. PAGE 2 Signed Report (CONTINUED) Name: SALAZAR HILL [facility] [place] : 1945 Age/S: 76 / F [address] [place] [address] Blvd Unit #: [id number] Loc: [place] [address] Phys: Damaso Reyna MD Acct: [id number] Dis Date: Status: ADM IN PHONE #: [phone] Exam Date: 07/06/2021 1054 FAX #: [phone] Reason: cva EXAMS: CPT CODE: [id number] CT ANGIO NECK 11696 (Continued) REFERENCES:NASCET CRITERIA. The degree of internal carotid artery stenosis is based on NASCET criteria. Normal is no stenosis. Mild is less than 50% stenosis. Moderate is 50-69% stenosis. Severe is 70% to 99% stenosis. Total occlusion is no detectable patent lumen. IMPRESSION: CT Angiography Head With Contrast, Arteriography No large vessel stenosis or occlusion. CT Angiography Neck With Contrast 1. No stenosis or occlusion. 2. Small right pleural effusion and airspace opacity in the right upper lung suggestive of pneumonia. Lung neoplasm cannot be excluded on this exam and CT chest may be performed. at 1130 Reported and signed by: Cyrus Lemus M.D. CC: Evens Carreon DO; Damaso Reyna MD Technologist:Ivonne Blanchard RT(R)(CT); .. CTDI: DLP: Trnscb Date/Time: 07/06/2021 (1130) [email or web address] Orig Print D/T: S: 07/06/2021 (1131) PAGE 3 Signed Report- CT ANGIO HEAD 2021-07-06 00:00:00 [facility] : 1945 Sex: F Name: SALAZAR HILL [facility] [place] : 1945 Age/S: 76 / F [address] [place] [address] Blvd Unit #: [id number] Loc: [place] [address] Phys: Damaso Reyna MD Acct: [id number] Dis Date: 07/10/2021 Status: DIS IN PHONE #: [phone] Exam Date: 07/06/2021 1054 FAX #: [phone] Reason: cva EXAMS: CPT CODE: [id number] CT ANGIO HEAD 77136 PROCEDURE INFORMATION: Exam: CT Angiography Head With Contrast, Art eriography Exam date and time: 07/06/2021 10:53 AM Age: 76 years old Clinical indication: Other: CVA,severe headache TECHNIQUE: Imaging protocol: Computed tomography angiography of the head with contrast. Exam focused on the arteries. 3D rendering (Not supervised by radiologist): MIP and/or 3D reconstructed images were created by the technologist. Radiation optimization: All CT scans at this facilityuse at least one of these dose optimization techniques: automated exposure control; mA and/or kV adjustment per patient size (includes targeted exams where dose is matched to clinical indication); or iterative reconstruction. Contrast material: ISO; Contrast volume: 100 ml; Contrast route: INTRAVENOUS (IV); COMPARISON: MRI BRAIN W/O CONT, MRI BRAIN W/O CONT 07/05/2021 11:31 AM FINDINGS: ANTERIOR CIRCULATION: Right internal carotid artery: Unremarkable. Intracranial segment is patent with no significant stenosis. No aneurysm. Right middle cerebral artery: Unremarkable. No occlusion or significant stenosis. No aneurysm. Right anterior cerebral artery: Unremarkable. No occlusion or significant stenosis. No aneurysm. Left internal carotid artery: Unremarkable. Intracranial segment is patent with no significant stenosis. No aneurysm. Left middle cerebral artery: Unremarkable. No occlusion or significant stenosis. No aneurysm. Left anterior cerebral artery: Unremarkable. No occlusion or significant stenosis. No aneurysm. POSTERIOR CIRCULATION: Right vertebral artery: Unremarkable. No occlusion or significant stenosis. No aneurysm. Left vertebral artery: Unremarkable. No occlusion or significant stenosis. No aneurysm. Basilar artery: Unremarkable. No occlusion or significant stenosis. No aneurysm.Right posterior cerebral artery: Unremarkable. No occlusion or significant stenosis. No aneurysm. Left posterior cerebral artery: Unremarkable. No occlusion or significant stenosis. No aneurysm. Brain: No definite mass, mass effect, or midline shift. PAGE 1 Signed Report (CONTINUED) Name: SALAZRA HILL [facility] : 1945 Age/S: 76 / F [address] [place], [place] [address]vd Unit #: [id number] Loc: [place] [address] Phys: Damaso Reyna MD Acct: [id number] Dis Date: 07/10/2021 Status: DIS IN PHONE #: [phone] Exam Date: 07/06/2021 1054 FAX #: [phone] Reason: cva EXAMS: CPT CODE: [id number] CT ANGIO HEAD 10902 <Continued> Cerebral ventricles: No ventriculomegaly. Bones/joints: Unremarkable. No acute fracture. Soft tissues: Unremarkable. PROCEDURE INFORMATION: Exam: CT Angiography Neck With Contrast Exam date and time: 07/06/2021 10:53 AM Age: 76 years old Clinical indication: Other: CVA, severe headache TECHNIQUE: Imaging protocol: Computed tomography angiography of the neck with contrast. 3D rendering (Not supervised by radiologist): MIP and/or 3D reconstructed images were created by the technologist. Radiation optimization: All CT scans at this facility use at least one of these dose optimization techniques: automated exposure control; mA and/or kV adjustment per patient size (includes targeted exams where dose is matched to clinical indication); or iterative reconstruction. Contrast material: ISO; Contrast volume: 100 ml; Contrast route: INTRAVENOUS (IV); COMPARISON: MRI BRAIN W/O CONT, MRI BRAIN W/O CONT 07/05/2021 11:31 AM FINDINGS: Right common carotid artery: No stenosis. No dissection or occlusion. Right internal carotid artery: No stenosis of the extracranial segment. No dissection or occlusion. Right external carotid artery: No occlusion or stenosis of the origin. Left common carotid artery: No stenosis. No dissection or occlusion. Left internal carotid artery: No stenosis of the extracranial segment. No dissection or occlusion. Left external carotid artery: No occlusion or stenosis of the origin. Right vertebral artery: No stenosis. No dissection or occlusion. Left vertebral artery: No stenosis. No dissection or occlusion. Other arteries: The subclavian arteries are patent. Soft tissues: Normal. No significant soft tissue swelling. Bones/joints: No acute fracture. Pleural spaces: There is a small right pleural effusion. There are airspace opacities in the right upper lung concerning for pneumonia. PAGE 2 Signed Report (CONTINUED) Name: SALAZAR HILL [facility] : 1945 Age/S: 76 / F [address] [place] [address] Unit #: [id number] Loc: [place] [address] Phys: Damaso Reyna MD Acct: [id number] Dis Date: 07/10/2021 Status:DIS IN PHONE #: [phone] Exam Date: 07/06/2021 1054 FAX #: [phone] Reason: cva EXAMS: CPT CODE: [id number] CT ANGIO HEAD 09319 <Continued> REFERENCES: NASCET CRITERIA. The degree of internal carotid artery stenosis is based on NASCET criteria. Normal is no stenosis. Mild is less than 50% stenosis. Moderate is 50- 69% stenosis. Severe is 70% to 99% stenosis. Total occlusion is no detectable patent lumen. IMPRESSION: CT Angiography Head With Contrast, Arteriography No large vessel stenosis or occlusion. CT Angiography Neck With Contrast 1. No stenosis or occlusion. 2. Small right pleural effusion and airspace opacity in the right upper lung suggestive of pneumonia. Lung neoplasm cannot be excluded on this exam and CT chest may be performed. ElectronicallySigned by Ki Lemus on 07/06/2021 at 1130 Reported and signed by: Cyrus Lemus M.D. CC: Evens Carreon DO; Damaso Reyna MD Technologist:Ivonne Krnavek, RT(R)(CT); .. CTDI: DLP: Trnscb Date/Time: 07/06/2021 (1130) [email or web address] Orig Print D/T: S: 07/06/2021 (1201) PAGE 3 Signed Report- CT ANGIO [id number] 00:00:00 [facility] 1945 Sex: F Name: SALAZAR HILL [facility] : 1945 Age/S: 76 / F [address] [place] [address] Blvd Unit #: [id number] Loc: [place] [address] Phys: Damaso Reyna MD Acct: [id number] Dis Date: 07/10/2021 Status:DIS IN PHONE #: [phone] Exam Date: 07/06/2021 1054 FAX #: [phone] Reason: cva EXAMS: CPT CODE: [id number] CT ANGIO NECK 64743 PROCEDURE INFORMATION: Exam: CT Angiography Head With Contrast, Art eriography Exam date and time: 07/06/2021 10:53 AM Age: 76 years old Clinical indication: Other: CVA,severe headache TECHNIQUE: Imaging protocol: Computed tomography angiography of the head with contrast. Exam focused on the arteries. 3D rendering (Not supervised by radiologist): MIP and/or 3D reconstructed images were created by the technologist. Radiation optimization: All CT scans at this facilityuse at least one of these dose optimization techniques: automated exposure control; mA and/or kV adjustment per patient size (includes targeted exams where dose is matched to clinical indication); or iterative reconstruction. Contrast material: ISO; Contrast volume: 100 ml; Contrast route: INTRAVENOUS (IV); COMPARISON: MRI BRAIN W/O CONT, MRI BRAIN W/O CONT 07/05/2021 11:31 AM FINDINGS: ANTERIOR CIRCULATION: Right internal carotid artery: Unremarkable. Intracranial segment is patent with no significant stenosis. No aneurysm. Right middle cerebral artery: Unremarkable. No occlusion or significant stenosis. No aneurysm. Right anterior cerebral artery: Unremarkable. No occlusion or significant stenosis. No aneurysm. Left internal carotid artery: Unremarkable. Intracranial segment is patent with no significant stenosis. No aneurysm. Left middle cerebral artery: Unremarkable. No occlusion or significant stenosis. No aneurysm. Left anterior cerebral artery: Unremarkable. No occlusion or significant stenosis. No aneurysm. POSTERIOR CIRCULATION: Right vertebral artery: Unremarkable. No occlusion or significant stenosis. No aneurysm. Left vertebral artery: Unremarkable. No occlusion or significant stenosis. No aneurysm. Basilar artery: Unremarkable. No occlusion or significant stenosis. No aneurysm.Right posterior cerebral artery: Unremarkable. No occlusion or significant stenosis. No aneurysm. Left posterior cerebral artery: Unremarkable. No occlusion or significant stenosis. No aneurysm. Brain: No definite mass, mass effect, or midline shift. PAGE 1 Signed Report (CONTINUED) Name: SALAZAR HILL [facility] : 1945 Age/S: 76 / F [address] [place] [address] Blvd Unit #: [id number] Loc: [place] [address] Phys: Damaso Reyna MD Acct: [id number] Dis Date: 07/10/2021 Status: DIS IN PHONE #: [phone] Exam Date: 07/06/2021 1054 FAX #: [phone] Reason: cva EXAMS: CPT CODE: [id number] CT ANGIO NECK 01493 <Continued> Cerebral ventricles: No ventriculomegaly. Bones/joints: Unremarkable. No acute fracture. Soft tissues: Unremarkable. PROCEDURE INFORMATION: Exam: CT Angiography Neck With Contrast Exam date and time: 07/06/2021 10:53 AM Age: 76 years old Clinical indication: Other: CVA, severe headache TECHNIQUE: Imaging protocol: Computed tomography angiography of the neck with contrast. 3D rendering (Not supervised by radiologist): MIP and/or 3D reconstructed images were created by the technologist. Radiation optimization: All CT scans at this facility use at least one of these dose optimization techniques: automated exposure control; mA and/or kV adjustment per patient size (includes targeted exams where dose is matched to clinical indication); or iterative reconstruction. Contrast material: ISO; Contrast volume: 100 ml; Contrast route: INTRAVENOUS (IV); COMPARISON: MRI BRAIN W/O CONT, MRI BRAIN W/O CONT 07/05/2021 11:31 AM FINDINGS: Right common carotid artery: No stenosis. No dissection or occlusion. Right internal carotid artery: No stenosisof the extracranial segment. No dissection or occlusion. Right external carotid artery: No occlusionor stenosis of the origin. Left common carotid artery: No stenosis. No dissection or occlusion. Leftinternal carotid artery: No stenosis of the extracranial segment. No dissection or occlusion. Left external carotid artery: No occlusion or stenosis of the origin. Right vertebral artery: No stenosis. No dissection or occlusion. Left vertebral artery: No stenosis. No dissection or occlusion. Other arteries: The subclavian arteries are patent. Soft tissues: Normal. No significant soft tissue swelling. Bones/joints: No acute fracture. Pleural spaces: There is a small right pleural effusion. There are airspace opacities in the right upper lung concerning for pneumonia. PAGE 2 Signed Report (CONTINUED)Name: SALAZAR HILL [facility] : 1945 Age/S: 76 / F [address] [place] [address] Unit #: [id number] Loc: [place] [address] Phys: Damaso Reyna MD Acct: [id number] Dis Date: 07/10/2021 Status: DIS IN PHONE #: [phone] Exam Date: 07/06/2021 1054 FAX #: [phone] Reason: cva EXAMS: CPT CODE: [id number] CT ANGIO NECK 01954 <Continued> REFERENCES: NASCET CRITERIA. The degree of internal carotid artery stenosis is based on NASCET criteria. Normal is no stenosis. Mild is less than 50% stenosis. Moderate is 50-69% stenosis. Severe is 70% to 99% stenosis. Total occlusion is no detectable patent lumen. IMPRESSION: CT Angiography Head With Contrast, Arteriography No large vessel stenosis or occlusion. CT Angiography Neck With Contrast 1. No stenosis or oc clusion. 2. Small right pleural effusion and airspace opacity in the right upper lung suggestive of pneumonia. Lung neoplasm cannot be excluded on this exam and CT chest may be performed. at 1130 Reported and signed by: Cyrus Lemus M.D. CC: Evens Carreon DO; Damaso Reyna MD Technologist:Ivonne Blanchard, RT(R)(CT); .. CTDI: DLP: Trnscb Date/Time: 07/06/2021 (1130) [email or web address] Orig Print D/T: S: 07/06/2021 (1131) PAGE 3 Signed ReportCBC W/AUTO [id number] 22:36:00 Test Item Value Reference Range Interpretation Comments WHITE BLOOD CELL (test code = 16.2 x10 3/uL 4.5-11.0 H WBC) RED BLOOD CELL (test code = 3.81 x10 6/uL 3.54-5.02 N RBC) HEMOGLOBIN (test code = HGB) 12.6 g/dL 11.0-15.0 N HEMATOCRIT (test code = HCT) 40.1 % 33.0-45.0 N MEAN CELL VOLUME (test code = 105.2 fL 81.0-99.0 H MCV) MEAN CELL HGB (test code = 33.1 pg 27.0-33.0 H MCH) MEAN CELL HGB CONCETRATION 31.4 g/dL 33.0-37.0 L (test code = MCHC) RED CELL DISTRIBUTION WIDTH CV 14.5 % 11.5-14.5 N (test code = RDW) RED CELL DISTRIBUTION WIDTH SD 56.9 fL 37.0-54.0 H (test code = RDW-SD) PLATELET COUNT (test code = 185 x10 3/uL 150-400 N PLT) MEAN PLATELET VOLUME (test 10.0 fL 7.0-9.0 H code = MPV) NEUTROPHIL % (test code = NT%) 76.3 % 56.0-77.0 N IMMATURE GRANULOCYTE % (test 1.1 % 0.0-2.0 N code = IG%) LYMPHOCYTE % (test code = LY%) 12.7 % 14.0-32.0 L MONOCYTE % (test code = MO%) 9.5 % 4.8-9.0 H EOSINOPHIL % (test code = EO%) 0.2 % 0.3-3.7 L BASOPHIL % (test code = BA%) 0.2 % 0.0-2.0 N NUCLEATED RBC % (test code = 0.0 % 0-0 N NRBC%) NEUTROPHIL # (test code = NT#) 12.32 x10 3/uL 2.0-7.6 H IMMATURE GRANULOCYTE # (test 0.17 x10 3/uL 0.00-0.03 H code = IG#) LYMPHOCYTE # (test code = LY#) 2.06 x10 3/uL 1.0-3.8 N MONOCYTE # (test code = MO#) 1.54 x10 3/uL 0.1-0.8 H EOSINOPHIL # (test code = EO#) 0.04 x10 3/uL 0.0-0.2 N BASOPHIL # (test code = BA#) 0.03 x10 3/uL 0.0-0.2 N NUCLEATED RBC # (test code = 0.00 x10 3/uL 0.0-0.1 N NRBC#) MANUAL DIFF REQUIRED (test NO code = MDIFF) RBC [id number] 22:36:00 Test Item Value Reference Range Interpretation Comments ANISOCYTOSIS (test code = ANISO) 1+ POLYCHROMASIA (test code = POLC) SLIGHT POIKILOCYTOSIS (test code = POIK) SLIGHT MACROCYTOSIS (test code = MACR) 1+ OVALOCYTES (test code = OVAL) FEW COMPREHENSIVE METABOLIC [id number] 22:19:00 Test Item Value Reference Range Interpretation Comments SODIUM (test code = 133 mEq/L 134-147 L NA) POTASSIUM (test code = 5.0 mEq/L 3.4-5.0 N SPEC IMEN 1+ K) HEMOLYZED.Resul ts known to be adversely affec vanessa by hemolysis ar e: Potassium Magne sium LDH Phosphorus CHLORIDE (test code = 107 mEq/L 100-108 N CL) CARBON DIOXIDE (test 19 mEq/l 21-33 L code = CO2) ANION GAP (test code = 12 0-20 N GAP) GLUCOSE (test code = 120 mg/dL 70-110 H GLU) BLOOD UREA NITROGEN 8 mg/dL 7-18 N (test code = BUN) GLOMERULAR FILTRATION 58.6 70-80 L Units of measure = RATE (test code = GFR) ml/mi n/1.73 m2 CREATININE (test code 1.1 mg/dL 0.6-1.3 N = CREAT) TOTAL PROTEIN (test 6.6 g/dL 6.4-8.2 N code = PROT) ALBUMIN (test code = 3.00 g/dL 3.4-5.0 L ALB) CALCIUM (test code = 9.3 mg/dL 8.0-10.5 N CA) BILIRUBIN TOTAL (test 0.90 mg/dL 0.0-1.0 N code = BILT) SGOT/AST (test code = 108 IUnit/L 15-37 H AST) SGPT/ALT (test code = 158 IUnit/L 30-65 H ALT) ALKALINE PHOSPHATASE 203 IUnit/L 20-125 H TOTAL (test code = ALKP) LIPID PROFILE (CORONARY RISK)2021-07-05 22:19:00 Test Item Value Reference Range Interpretation Comments TRIGLYCERIDES (test 84 mg/dL 40-150 N code = TRIG) CHOLESTEROL (test 110 mg/dL <200 code = CHOL) CHOLESTEROL/HDL 3.59 RATIO 3.27-4.44 N RISK ASSOCIA VANESSA WITH RATIO (test code = CHOL/HDL RATIOS: RISK CHOLHDL) MALE FEMALE1/2 AVERAGE 3.43 3.27AVERAG E 4.97 4.442X AVERAGE 9.55 7.053X AVERAGE 23.39 11.04 NOTE THAT THE REFERENCE VALUE IS RELATEDTO RISK LEVELS RECOMMENDED BY THE NATL.HEART, WALE G, AND BLOOD INST. HDL CHOLESTEROL 30.6 mg/dL 39-96 L (test code = HDL) LIPOPROTEIN LDL 59.1 mg/dL 0-100 N <100 OPTIMAL 100-129 (test code = LDL) NEAR OPTIM AL/ABOVE [id number] HIGH>GI=484 ROC Y HIGH*Guidelines provided by the National Choles terol EducationProgra m Adult Treatment Panel III HGBA1C%2021-07-05 22:19:00 Test Item Value Reference Range Interpretation Comments HGBA1C% (test code = HGBA1C%) 5.8 %A1C 4.8-6.0 N GLUCOSE [id number] 20:48:00 Test Item Value Reference Range Interpretation Comments GLUCOSE BEDSIDE (test 113 MG/DL 70-110 H Perfor med by certified code = GLUBED) 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 - XR CHEST 1 [id number] 00:00:00 [facility] : 1945 Sex: F FAX: Evens Flynn DO [phone] [place]: St: ADM Name: SALAZAR HILL [facility] : 1945 Age/S: 76/F [address] [place] [address] Unit #: [id number] Loc: [place] [address] Phys: Evens Carreon DO Acct: [id number] Dis Date: Status: ADM IN PHONE #: [phone] Exam Date: 07/05/2021 1645 FAX #: [phone] Reason: stroke EXAMS: CPT CODE: [id number] XR CHEST 1 V 96074 PROCEDURE INFORMATION: Exam: XR Chest Exam date and time: 07/05/2021 4:36 PM Age: 76 years old Clinical indication: Other: Stroke TECHNIQUE: Imaging protocol: XR of the chest. Views: 1 view. COMPARISON: No relevant prior studies available. FINDINGS: Lungs: Mild decreased lung volumes. No consolidation. Pleural spaces: Unremarkable. No pleural effusion. No pneumothorax. Heart/Mediastinum: Cardiac silhouette is mildly enlarged. Bones/joints: Unremarkable. IMPRESSION: No acute cardiopulmonary disease. Electronically Signed by Ki Farias on 06/15 at 1710 Reported and signed by: Harsh Farias M.D. CC: Evens Carreon DO Technologist: LIZBETH Kauffman) Trnscrd Date/Time/By: 07/05/2021 (1709) : By: PriyankSBL Orig Print D/T: S: 07/05/2021(1709) PAGE 1 Signed Report- XR CHEST 1 V 2021-07-05 00:00:00 [facility] : 1945 Sex: F FAX: Evens Flynn DO [phone] [place]: St: DIS Name: SERGIOSALAZAR MELTON [facility] : 1945 Age/S: 76/F [address] [place] [address] Unit #: [id number] Loc: [address] [place] [id number] Phys: Evens Carreon DO Acct: [id number] Dis Date: [id number] Status: DIS IN PHONE #: [phone] Exam Date: 07/05/2021 1645 FAX #: Reason: stroke EXAMS: CPT CODE: [id number] XR CHEST 1 V 44815 PROCEDURE INFORMATION: Exam:XR Chest Exam date and time: 07/05/2021 4:36 PM Age: 76 years old Clinical indication: Other: Stroke TECHNIQUE: Imaging protocol: XR of the chest. Views: 1 view. COMPARISON: No relevant prior studies available. FINDINGS: Lungs: Mild decreased lung volumes. No consolidation. Pleural spaces: Unremarkable. No pleural effusion. No pneumothorax. Heart/Mediastinum: Cardiac silhouette is mildly enlarged. Bones/joints: Unremarkable. IMPRESSION: No acute cardiopulmonary disease. at 1710 Reported and signed by: Harsh Farias M.D. CC: Evens Crareon DO Technologist: LIZEBTH Encarnacion) Maryann Date/Time/By: 07/05/2021 (7380) : By: Rosa Orig Print D/T: S: 07/05/2021 (3139) PAGE 1 Signed Report
[2022-02-28 03:05] LABS: Absolute Lymphocytes (CBC) 1.8 K/uL (0.7-4.9); Hematocrit 35.8 % (36.0-45.0); Lymphocytes % 28.1 % (15.3-44.8); MCV 100.2 fL (80-100); MPV 7.9 fL (7.6-11.3); RBC Red Blood Cell Count 3.57 M/uL (3.86-4.86)
[2022-02-28 03:09] LABS: Protime INR 1.05
[2022-02-28 03:22] LABS: Albumin 3.9 g/dL (3.4-5.0); Bilirubin Direct 0.2 mg/dL (0-0.2); Bilirubin Total 0.6 mg/dL (0.2-1.0); Potassium 3.6 mmol/L (3.5-5.1); Protein, Total 7.7 g/dL (6.4-8.2); Troponin High Sensitivity 12.5 pg/mL (<58.9)
--- NOTE | 2022-02-28 05:17 | EDPHYS ---
Physician Documentation [facility] Name: Conchita Padilla Age: 76 yrs Sex: Female : 1945 Arrival Date: 02/28/2022 Time: 00:44 Bed 10 Private MD: ED Physician Zacarias Bateman HPI: 02/28 01:01 This 76 yrs old Black Female presents to ER via Wheelchair with complaints of Shortness rn Of Breath. 01:01 The patient has shortness of breath with light activity. Onset: The symptoms/episode rn began/occurred 2 week(s) ago. Duration: The symptoms are intermittent. The patient's shortness of breath is aggravated by exertion, light activity, supine position, talking, walking. Associated signs and symptoms: Pertinent negatives: chest pain, non-productive cough, productive cough, fever, hemoptysis. Severity of symptoms: At their worst the symptoms were moderate in the emergency department the symptoms are unchanged. The patient has experienced similar episodes in the past. The patient has been recently seen by a physician:. Pt reports sob, began several weeks ago, worse with exertion, no fever/chills/cough. Not taking her diuretic for sometime now, just restarted it today. Does not feel ill. Also reports decreased appetite and abd discomfort, also for weeks. . Historical: - Home Meds: 01:00 amlodipine 5 mg tab 1 tab once daily [Active]; atorvastatin 40 mg Oral tab 1 tab once kd3 daily [Active]; hydrochlorothiazide 12.5 mg Oral cap 1 cap once daily [Active]; clonidine HCl 0.1 mg Oral tab 1 tab once daily [Active]; levothyroxine 137 mcg tab 1 tab once daily [Active]; olmesartan Oral [Active]; - PMHx: 01:00 Hypertension; Hypothyroidism; Hyperlipidemia; kd3 01:02 Congestive heart failure; kd3 - Immunization history:: Adult Immunizations up to date. - Social history:: Smoking status: unknown. - Family history:: not pertinent. - Hospitalizations: : No recent hospitalization is reported. ROS: 01:01 Constitutional: Negative for fever, chills, and weight loss, Eyes: Negative for injury, rn pain, redness, and discharge, Neck: Negative for injury, pain, and swelling, Cardiovascular: Negative for chest pain, palpitations, and edema, Respiratory: + sob Abdomen/GI: + abd pain MS/Extremity: Negative for injury and deformity, Skin: Negative for injury, rash, and discoloration, Neuro: Negative for headache, weakness, numbness, tingling, and seizure. Exam: 01:01 Constitutional: This is a well developed, well nourished patient who is awake, alert, rn and in no acute distress. Head/Face: Normocephalic, atraumatic. Cardiovascular: Regular rate and rhythm. No pulse deficits. Respiratory: + mild tachypnea, no retractions Abdomen/GI: Soft, non-tender Skin: Warm, dry with normal turgor. Normal color with no rashes, no lesions, and no evidence of cellulitis. MS/ Extremity: Pulses equal, no cyanosis. Neurovascular intact. Full, normal range of motion. Equal circumference. 1+ edema bilateral lower ext Neuro: Awake and alert, GCS 15 03:52 ECG was reviewed by the Attending Physician. rn Vital Signs: 00:58 BP 140 / 88; Pulse 83; Resp 22; Temp 97.8; Pulse Ox 100% on R/A; Weight 108.41 kg; kd3 Height 5 ft. 8 in. (172.72 cm); Pain 5/10; 02:00 BP 139 / 78; Pulse 73; Resp 16; Pulse Ox 98% ; Pain 0/10; jj7 03:01 BP 141 / 70; Pulse 71; Resp 20; Pulse Ox 99% ; Pain 0/10; jj7 03:54 BP 137 / 67; Pulse 66; Resp 17; Pulse Ox 100% ; Pain 0/10; jj7 05:00 BP 106 / 61; Pulse 66; Resp 18; Pulse Ox 97% ; Pain 0/10; jj7 00:58 Body Mass Index 36.34 (108.41 kg, 172.72 cm) kd3 MDM: 00:45 Patient medically screened. rn 05:15 Differential diagnosis: Anxiety Reaction CHF exacerbation, pneumonia, Pneumothorax rn Psychogenic pulmonary edema, reactive airway disease. Data reviewed: vital signs, nurses notes, lab test result(s), radiologic studies, CT scan, plain films, and as a result, I will discharge patient. Counseling: I had a detailed discussion with the patient and/or guardian regarding: the historical points, exam findings, and any diagnostic results supporting the discharge/admit diagnosis, lab results, radiology results, the need for outpatient follow up, to return to the emergency department if symptoms worsen or persist or if there are any questions or concerns that arise at home. Response to treatment: the patient's symptoms have mildly improved after treatment, and as a result, I will discharge patient. Special discussion: I discussed with the patient/guardian in detail that at this point there is no indication for admission to the hospital. It is understood, however, that if the symptoms persist or worsen the patient needs to return immediately for re-evaluation. Based on the history and exam findings, there is no indication for further emergent testing or inpatient evaluation. I discussed with the patient/guardian the need to see the power distribution engineer for further evaluation of the symptoms. I discussed with the patient/guardian the need to see the primary care provider for further evaluation of the symptoms. ED course: No acute findings found on CXR/CT abdomen, normal BNP, neg trop, no ischemia on ECG, stable vitals. Symptoms present for weeks, will refer to pcp and cardiology for further testing and eval.. 02/28 00:59 Order name: BMP; Complete Time: : rn 02/28 00:59 Order name: Blood Culture Adult (2) rn 02/28 00:59 Order name: CBC with Diff; Complete Time: 03: rn 02/28 00:59 Order name: Hepatic Function; Complete Time: : rn 02/28 00:59 Order name: NT PRO-BNP; Complete Time: : rn 02/28 00:59 Order name: PT-INR; Complete Time: 03: rn 02/28 00:59 Order name: Ptt, Activated; Complete Time: : rn 02/28 00:59 Order name: Troponin HS; Complete Time: : rn 02/28 00:59 Order name: XRAY CXR (1 view) rn 02/28 01:00 Order name: Lipase; Complete Time: : rn 02/28 03:26 Order name: Abdomen EDNE 02/28 00:59 Order name: EKG; Complete Time: 01:01 rn 02/28 00:59 Order name: Cardiac monitoring; Complete Time: 02:55 rn 02/28 00:59 Order name: EKG - Nurse/Tech rn 02/28 00:59 Order name: IV Saline Lock; Complete Time: 02:54 rn 02/28 00:59 Order name: Labs collected and sent; Complete Time: : rn 02/28 00:59 Order name: O2 Per Protocol; Complete Time: rn 02/28 00:59 Order name: O2 Sat Monitoring; Complete Time: : rn EC:52 Rate is 67 beats/min. Rhythm is regular. QRS Trout is Normal. OH interval is normal. QRS rn interval is normal. QT interval is normal. No Q waves. T waves are Normal. No ST changes noted. Clinical impression: Normal ECG. Interpreted by me. Reviewed by me. Administered Medications: No medications were administered Disposition Summary: 02/28/22 05:17 Discharge Ordered Location: Home rn Problem: an ongoing problem rn Symptoms: have improved rn Condition: Stable rn Diagnosis - Dyspnea, unspecified rn - Abdominal pain, unspecified rn Followup: rn - With: Private Physician - When: As needed - Reason: Recheck today's complaints, Re-evaluation by your physician Discharge Instructions: - Discharge Summary Sheet rn - Abdominal Pain, Adult rn - Pain Without a Known Cause rn - Shortness of Breath, Adult rn Forms: - Medication Reconciliation Form rn - Thank You Letter rn - 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 [facility] EDNE
--- NOTE | 2022-02-28 05:17 | ER ---
Nurse's Notes [facility] Name: Conchita Padilla Age: 76 yrs Sex: Female : 1945 Arrival Date: 02/28/2022 Time: 00:44 Bed 10 Private MD: Diagnosis: Dyspnea, unspecified;Abdominal pain, unspecified Presentation: 02/28 00:47 Chief complaint: Patient states: When i move around i feel real short of breath and kd3 when i sit down and stay still i feel better. I was on a fluid pill to try to make it better. My stomach also hurts when i eat but i have a history of ulcers so that may just be that. I do feel pretty light headed when i move around. Ebola Screen: No symptoms or risks identified at this time. 00:47 Method Of Arrival: Wheelchair kd3 00:58 Coronavirus screen: Vaccine status: Patient reports receiving the 2nd dose of the covid kd3 vaccine. Initial Sepsis Screen: Does the patient meet any 2 criteria? No. Patient's initial sepsis screen is negative. Does the patient have a suspected source of infection? No. Patient's initial sepsis screen is negative. Risk Assessment: Do you want to hurt yourself or someone else? Patient reports no desire to harm self or others. Onset of symptoms was February 28, 2022. 00:58 Acuity: [place] 3 kd3 Triage Assessment: 01:00 General: Appears uncomfortable, Behavior is calm, cooperative. Pain: Complains of pain kd3 in abdomen. Neuro: Level of Consciousness is awake, alert, obeys commands, Oriented to person, place, time, situation. Respiratory: Reports shortness of breath on exertion Onset: The symptoms/episode began/occurred at an unknown time. the patient has moderate shortness of breath. Respiratory: Airway is patent Trachea midline Respiratory effort is even, Respiratory pattern is regular, symmetrical. Historical: - Home Meds: 01:00 amlodipine 5 mg tab 1 tab once daily [Active]; atorvastatin 40 mg Oral tab 1 tab once kd3 daily [Active]; hydrochlorothiazide 12.5 mg Oral cap 1 cap once daily [Active]; clonidine HCl 0.1 mg Oral tab 1 tab once daily [Active]; levothyroxine 137 mcg tab 1 tab once daily [Active]; olmesartan Oral [Active]; - PMHx: 01:00 Hypertension; Hypothyroidism; Hyperlipidemia; kd3 01:02 Congestive heart failure; kd3 - Immunization history:: Adult Immunizations up to date. - Social history:: Smoking status: unknown. - Family history:: not pertinent. - Hospitalizations: : No recent hospitalization is reported. Screenin:01 Abuse screen: Denies threats or abuse. Denies injuries from another. Nutritional kd3 screening: No deficits noted. Tuberculosis screening: No symptoms or risk factors identified. Fall Risk None identified. Assessment: 01:09 Reassessment: SEE TRIAGE ASSESSMENT. jj7 Vital Signs: 00:58 BP 140 / 88; Pulse 83; Resp 22; Temp 97.8; Pulse Ox 100% on R/A; Weight 108.41 kg; kd3 Height 5 ft. 8 in. (172.72 cm); Pain 5/10; 02:00 BP 139 / 78; Pulse 73; Resp 16; Pulse Ox 98% ; Pain 0/10; jj7 03:01 BP 141 / 70; Pulse 71; Resp 20; Pulse Ox 99% ; Pain 0/10; jj7 03:54 BP 137 / 67; Pulse 66; Resp 17; Pulse Ox 100% ; Pain 0/10; jj7 05:00 BP 106 / 61; Pulse 66; Resp 18; Pulse Ox 97% ; Pain 0/10; jj7 00:58 Body Mass Index 36.34 (108.41 kg, 172.72 cm) kd3 ED Course: 00:44 Patient arrived in ED. jj6 00:45 Zacarias Bateman MD is Attending Physician. rn 01:00 Triage completed. kd3 01:01 Arm band placed on right wrist. kd3 01:01 Patient has correct armband on for positive identification. kd3 01:09 Fiona Lester, KALEY is Primary Nurse. jj7 01:32 XRAY CXR (1 view) In Process Unspecified. EDMS 02:45 Initial lab(s) drawn, by me, sent to lab. First set of blood cultures drawn by me. bb Inserted saline lock: 18 gauge in right antecubital area, using aseptic technique. Blood collected. 02:55 BMP Sent. jj7 02:55 Blood Culture Adult (2) Sent. jj7 02:56 CBC with Diff Sent. jj7 02:56 Hepatic Function Sent. jj7 02:56 NT PRO-BNP Sent. jj7 02:56 PT-INR Sent. jj7 02:56 Ptt, Activated Sent. jj7 02:56 Troponin HS Sent. jj7 03:39 Abdomen In Process Unspecified. EDMS Administered Medications: No medications were administered Medication: 01:09 VIS not applicable for this client. jj7 Outcome: 05:17 Discharge ordered by . rn 06:29 Patient left the ED. bb Signatures: Dispatcher [employer] EDMS Josephine Sorenson RN RN bb Zacarias Bateman MD MD rn Jeffries, Jennifer jj6 Carrie Beltran RN RN kd3 Fiona Lester RN RN jj7 Corrections: (The following items were deleted from the chart) 01:00 00:47 Chief complaint: Patient states: When i move around i feel real short of breath kd3 and when i sit down and stay still i feel better. I was on a fluid pill to try to make it better. kd3
[2022-02-28 06:39] VITALS: TEMP 97.8
[2022-02-28 06:57] VITALS: BP 106/61; O2SAT 97
--- NOTE | 2022-02-28 12:03 | RAD REPORT ---
EXAM DESCRIPTION: Chest Single View CLINICAL HISTORY: 6 years Female, DYSPNEA COMPARISON: None FINDINGS: No focal lung consolidation. No pleural effusion. No pneumothorax. Cardiomediastinal silhouette is within normal limits. No acute osseous abnormality. IMPRESSION: No acute cardiopulmonary disease. Electronically signed by: Walt Saenz DO 02/28/2022 1:46 AM CDT Due to temporary technical issues with the PACS/Fluency reporting system, reports are being signed by the in house radiologists without review as a courtesy to insure prompt reporting. The interpreting radiologist is fully responsible for the content of the report.
--- NOTE | 2022-02-28 12:22 | RAD REPORT ---
EXAM DESCRIPTION: CT Abdomen and Pelvis Without Intravenous Contrast CLINICAL HISTORY: The patient is 76 years old and is Female; abdominal pain TECHNIQUE: Axial computed tomography images of the abdomen and pelvis without intravenous contrast. Sagittal and coronal reformatted images were created and reviewed. This CT exam was performed usi ng one or more of the following dose reduction techniques: automated exposure control, adjustment o f the mA and/or kV according to patient size, and/or use of iterative reconstruction technique. COMPARISON: July 23, 2019. FINDINGS: Lung bases: Linear scarring right lower lobe. ABDOMEN: Liver: No hepatomegaly. 10 mm cyst in the right hepatic lobe. No follow-up imaging recommended. Gallbladder and bile ducts: Cholecystectomy with prominent biliary tree, likely reservoir effect. No choledocholithiasis visualized. Pancreas: Diffuse fatty infiltration of the pancreas. No ductal dilation. Spleen: Unremarkable. No splenomegaly. Adrenals: Unremarkable. No mass. Kidneys and ureters: Multiple areas of renal cortical scarring in the right kidney. No nephrolith iasis, hydronephrosis or ureter stone. 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 No follow-up imaging recommended . Stomach and bowel: Colonic diverticulosis. No bowel dilatation or obstruction. No bowel wall thickening. PELVIS: Appendix: No findings to suggest acute appendicitis. Bladder: Unremarkable. No stones. Reproductive: Hysterectomy. No adnexal mass. 19 mm slightly hyperdense lesion in the left vaginal wall, suspect Bartholin's cyst. This is unchanged as visualized. ABDOMEN and PELVIS: Intraperitoneal space: Unremarkable. No free air. No significant fluid collection. Bones/joints: Multilevel degenerative changes in the lumbar spine. L4-5 disc protrusion. No acute fracture visualized. No dislocation. Soft tissues: Unremarkable. Vasculature: Unremarkable. No abdominal aortic aneurysm. Lymph nodes: No pathologically enlarged lymph nodes. IMPRESSION: 1. No acute obstructive or inflammatory process identified. 2. Cholecystectomy with prominent biliary tree, likely reservoir effect. No choledocholithiasis vis ualized. 3. Diffuse fatty infiltration of the pancreas. 4. Colonic diverticulosis. 5. Additional non-emergent findings as above. Electronically signed by: Julieta Reeves MD 02/28/2022 5:10 AM CDT Due to temporary technical issues with the PACS/Fluency reporting system, reports are being signed by the in house radiologists without review as a courtesy to insure prompt reporting. The interpreting radiologist is fully responsible for the content of the report.
--- NOTE | 2022-02-28 14:02 | EKG ---
Test Date: 2022-02-28 Test Time: 03:44:27 Lace Stripper: MEASUREMENT RESULTS: Intervals: Rate: 67 VT: 164 QRSD: 94 QT: 424 QTc: 448 [place]: P: 63 VT: 164 QRS: 21 T: 43 INTERPRETIVE STATEMENTS: Normal sinus rhythm Normal ECG Compared to ECG 12/15/2016 16:29:56 No significant changes Electronically Signed On 02-28-22 14:00:30 CDT by Robby Frey
== END 2022-02-28 06:29 | disposition home or self-care (01) ==
LOC: ER 00:42
DX: R06.00 Dyspnea, unspecified (principal); R10.9 Unspecified abdominal pain; I10 Essential (primary) hypertension; I50.9 Heart failure, unspecified
CPT/HCPCS: 93005; 87040 ×2; 85025; 80048; 36415; 85610; 82565; 80076; 85730; 84484; 83690; 83880; 74176; 71045; 99284; Q9967